=== PATIENT | male | born 1950 | race Caucasian/White ===

== ENCOUNTER 2020-01-27 15:59 | Inpatient (IN) | payer OTHER ==
--- NOTE | 2020-01-27 16:31 | PDOC ---
Rapid Medical Evaluation Chief Complaint: Blood Transfusion Time Seen by Provider: 01/27/20 16:26 Medical Evaluation: Allergies Allergy/AdvReac Type Severity Reaction Status Date / Time No Known Allergies Allergy Verified 01/27/20 16:26 Vital Signs Temp Pulse Resp BP Pulse Ox 98.5 F 99 H 18 149/83 96 01/27/20 16:26 01/27/20 16:26 01/27/20 16:26 01/27/20 16:26 01/27/20 16:26 01/27/20 16:31 I have performed a brief in-person evaluation of this patient. The patient presents with a chief complaint of: Sent in for low H/H from Dr Pedersen office. No sxs per pt. H/o HTN, HLD, BPH, asthma, CP, wheelchair bound Pertinent physical exam findings:stable, well clovis I have ordered the following:labs The patient will proceed to the ED for further evaluation. Discharge Disposition - Diagnosis Anemia Qualifiers: Anemia type: unspecified type Qualified Code(s): D64.9 - Anemia, unspecified - Referrals - Patient Instructions - Post Discharge Activity
[2020-01-27 16:34] VITALS: BMI 32.4
--- NOTE | 2020-01-27 17:17 | PDOC ---
History of Present Illness - General Chief Complaint: Blood Transfusion Stated Complaint: SENT BY PCP Time Seen by Provider: 01/27/20 16:26 Past History - Medical History Allergies/Adverse Reactions: Allergies Allergy/AdvReac Type Severity Reaction Status Date / Time No Known Allergies Allergy Verified 01/27/20 16:26 Home Medications: Ambulatory Orders Albuterol Sulfate Inhaler - [Ventolin HFA Inhaler -] 2 puff IH Q6H PRN 01/28/20 Aspirin [ASA -] 81 mg PO DAILY 01/28/20 Atorvastatin Ca [Lipitor] 40 mg PO HS 01/28/20 Diltiazem HCl [Diltiazem 24Hr ER (Xr)] 240 mg PO DAILY 01/28/20 Lisinopril 20 mg PO DAILY 01/28/20 Montelukast Na [Singulair -] 10 mg PO DAILY 01/28/20 Salmeterol/Fluticasone [Advair 100Mcg/50Mcg -] 1 inh PO BID 01/28/20 Ferrous Sulfate [Iron] 325 mg PO BID 30 Days #60 tablet 02/02/20 Mineral Oil/Pet Hy-Phl [Aquaphor -] 1 applic TP DAILY #1 jar 02/02/20 Polyethylene Glycol 3350 [Miralax 119 gm Btl -] 17 gm PO DAILY 30 Days #30 ceasar le 02/02/20 Silver Sulfadiazine 1% Top Cr [Silvadene -] 1 applic TP DAILY #1 jar 02/02/20 Omeprazole 20 mg PO DAILY #30 tablet. 02/03/20 - Psycho-Social/Smoking History Smoking History: Never smoked - Substance Abuse Hx (Audit-C & DAST Scrn) How often the patient has a drink containing alcohol: Never Score: In Men: 4 or > Positive; In Women: 3 or > Positive: 0 Screen Result (Pos requires Nsg. Audit-10AR): Negative In the last yr the pt used illegal drug/Rx for NonMed reason: No Score: Yes response is considered Positive: 0 Screen Result (Positive result requires Nsg. DAST-10): Negative *Physical Exam - Vital Signs Last Vital Signs Temp Pulse Resp BP Pulse Ox 98.5 F 99 H 18 149/83 96 01/27/20 16:26 01/27/20 16:26 01/27/20 16:26 01/27/20 16:26 01/27/20 16:26 ED Treatment Course - LABORATORY CBC & Chemistry Diagram: 02/02/20 07:00 02/02/20 07:00 Medical Decision Making - Medical Decision Making 01/27/20 17:19 HPI: 69yo M hx HTN, HLD, BPH with baxter catheter in place, asthma, and cerebral palsy (wheelchair bound) sent by PCP with aide for asymptomatic anemia (labs done 01/24/20, unknown numbers). Endorses chronic constipation and hard stool, daily miralax use, LBM 2 days ago. Constipation is being evaluated outpatient; no CLP ever due to pt refusal due to fear. Aide states pt intermittently sees external hemorrhoids and will have bright red blood when wipes, but denies bright red blood in/on stool or dark or tarry stool. Endorses stage 1 sacral ulcer to L buttocks that bleeds daily. Endorses tiny <1cm bright red blood clots in urine intermittently x years. Denies hx anemia, lightheadedness, syncope, CP, SOB, recent illness, abdominal pain, N/V, F/C. PCP - [facility] (not private pt, admits to hospitalist) ROS: Constitutional: Positive for anemia. Negative for chills, fever, fatigue, diaphoresis. HENT: Negative for sore throat, rhinorrhea, congestion. Eyes: Negative for visual disturbance. Respiratory: Negative for shortness of breath, cough, and wheezing. Cardiovascular: Negative for chest pain, palpitations, and leg swelling. Gastrointestinal: Positive for constipation, BRBPR, and hemorrhoids. Negative for abdominal pain, constipation, diarrhea, nausea, and vomiting. Genitourinary: Positive for hematuria. Negative for dysuria, flank pain. Musculoskeletal: Negative for myalgias, back pain, and neck pain. Skin: Positive for L sacral ulcer. Negative for rash. Neurological: Negative for light-headedness, dizziness, vertigo, syncope, weakness, numbness and headaches. Psychiatric/Behavioral: Negative for behavioral problems and confusion. PE: Gen: Alert, NAD, comfortable-appearing, in wheelchair HEENT: PERRL, EOMI, MMM, NCAT. + conjunctival pallor. Sclera are non-icteric. Oropharynx is clear. CV: Regular rate and rhythm. No murmurs, rubs, or gallops. PULM: No resp distress. CTAB, no wheezes, rales, or rhonchi. ABD: soft, NT/ND, reducible hiatal hernia, no rebound tenderness or guarding, no CVA tenderness. Urine in bag yellow without gross blood. RECTAL: exam performed. Light brown stool. No paul blood, fissures, skin flaps, or hemorrhoids seen. No masses or hemorrhoids felt. No pain with digital insertion. Guiac test positive. + stage 1 L sacral ulcer. BACK: No TTP of c/t/l-spine. No step-offs or deformities. MSK: No bony deformities. 2+ pulses in all extremities. NEURO: AAOx3. PERRL. No gross CN deficits. Strength and sensation grossly intact throughout. EXTREMITIES: No cyanosis. No clubbing. No edema. PSYCH: Normal mood and thought pattern. SKIN: Warm and dry. Normal capillary refill. No rashes. No jaundice. MDM: 69yo M hx HTN, HLD, BPH with baxter catheter in place, asthma, and cerebral palsy (wheelchair bound) sent by PCP with aide for asymptomatic anemia (labs done 01/24/20, unknown numbers), with possible hemorrhoids, hematuria, and bleeding sacral ulcer. Hemodynamically stable, afebrile, neurologically intact. Ddx: hemorrhoids, GI bleed, bleeding ulcer, malignancy, UTI, kidney stone, infection, metabolic derangement, anemia -EKG -CXR -CBC,CMP,Cardiac profile,anemia labs,UA/UC -CTAP -FOBT + -IVF -Dispo: pending workup and reassessment EKG reviewed: normal sinus rhythm, 86bpm, normal axis, normal intervals, no Te/o acute ischemia CTAP reviewed: no acute emergent pathology; see read for other findings CXR reviewed: No acute pathology -Hb 6.6 -UA positive for UTI -Transfuse 2U pRBCs -Ceftriaxone 1g -Admit for anemia possibly 2/2 sacral ulcer vs GIB, and UTI Discharge - Discharge Information Problems reviewed: Yes Clinical Impression/Diagnosis: UTI (urinary tract infection) Anemia Qualifiers: Anemia type: unspecified type Qualified Code(s): D64.9 - Anemia, unspecified Condition: Stable - Admission Yes - Follow up/Referral - Patient Discharge Instructions - Post Discharge Activity
[2020-01-27 19:04] LABS: BASO % 2.6 % (0-2.0); HEMATOCRIT 22.5 % (35.4-49); LYMPH % 18.2 % (8-40); MCHC 29.2 g/dl (32.0-35.9); MEAN CELL VOLUME 59.1 fl (80-96); MONO % 7.8 % (3.8-10.2); NEUT % 70.4 % (42.8-82.8); PLATELET COUNT 525 K/MM3 (134-434); RBC 3.81 M/mm3 (4.00-5.60); RDW 18.3 % (11.9-15.9); RETICULOCYTES 2.26 % (0.5-1.5); WHITE BLOOD COUNT 10.8 K/mm3 (4.0-10.0)
[2020-01-27 19:09] LABS: ALBUMIN 3.3 g/dl (3.4-5.0); BILIRUBIN,TOTAL 0.4 mg/dL (0.2-1); BLOOD UREA NITROGEN 10.2 mg/dL (7-18); CALCIUM 8.7 mg/dL (8.5-10.1); MCH 17.2 pg (25.7-33.7); TOT PROT 6.6 g/dl (6.4-8.2)
[2020-01-27 19:11] LABS: HEMOGLOBIN 6.6 GM/dL (11.7-16.9)
[2020-01-27 19:13] LABS: INR 1.12 (0.83-1.09); PROTHROMBIN TIME (PATIENT) 13.2 SEC (9.7-13.0)
[2020-01-27 19:15] LABS: ACTIVATED PTT 29.3 SECONDS (25.2-36.5)
[2020-01-27 19:55] LABS: ANISOCYTOSIS 2+; PLATELET ESTIMATE INCREASED
[2020-01-27 20:25] LABS: EPI CELLS 7 /uL (0-25.1); HYALINE CASTS 22 /uL (0-3.1); URINE APPEARANCE CLOUDY; URINE BACTERIA 6919 /uL (0-1359); URINE BILIRUBIN NEGATIVE (NEGATIVE); URINE COLOR YELLOW; URINE GLUCOSE (UA) NEGATIVE (NEGATIVE); URINE KETONE NEGATIVE (NEGATIVE); URINE LEUK ESTERASE 3+ (NEGATIVE); URINE NITRITE POSITIVE (NEGATIVE); URINE PROTEIN 2+ (NEGATIVE); URINE RBC 292 /uL (0-23.9); URINE UROBILINOGEN 0.2 mg/dL (0.2-1.0); URINE WBC 647 /uL (0-25.8)
[2020-01-27] MEDS ORDERED: CEFTRIAXONE 1 GM in DEXTROSE 5%-WATER - 100 ML IVPB ONE (21:29)
--- NOTE | 2020-01-27 21:53 | PDOC ---
Documentation entered by Conner Suh SCRIBE, acting as scribe for Tanja Gimenez MD. Tanja Gimenez MD: This documentation has been prepared by the Angeli tapia Xhesika, SCRIBE, under my direction and personally reviewed by me in its entirety. I confirm that the documentation accurately reflects all work, treatment, procedures, and medical decision making performed by me. Attending Attestation - Resident Resident Name: Marlyn Chau - HPI HPI: 01/27/20 17:24 The patient is a 69y/o M with a PMH of HTN, HLD, BPH with baxter catheter in place, asthma, and cerebral palsy (wheelchair bound) who presents to the ED sent by PCP (Dr. Pedersen) with aide for asymptomatic anemia. Patient had outpatient labs done, had low hemoglobin and might need a blood transfusion. Pt reports chronic constipation and hemorrhoids, uses miralax. Pt reports his LBM was 2 days ago. Allergies: NKDA PCP: Dr. Pedersen, Adriana - Physicial Exam PE: 01/27/20 21:45 Agree with resident exam. Patient is alert and oriented and in no acute distress. Lungs are clear. Heart regular rate and rhythm. Abdomen is soft, non tender, non distended without guarding or rebound. Skin is pale. - Medical Decision Making 01/27/20 21:51 Pt presents to the ED after sent in from PCP's office for symptomatic anemia of uncertain cause. Will transfuse and admit to medicine for continued management. Discharge - Discharge Information Problems reviewed: Yes Clinical Impression/Diagnosis: UTI (urinary tract infection) Anemia Qualifiers: Anemia type: unspecified type Qualified Code(s): D64.9 - Anemia, unspecified Condition: Stable - Follow up/Referral - Patient Discharge Instructions - Post Discharge Activity
--- NOTE | 2020-01-27 22:04 | PN ---
Teaching Attending Note Name of Resident: Patsy Staley ATTENDING PHYSICIAN STATEMENT I saw and evaluated the patient. I reviewed the resident's note and discussed the case with the resident. I agree with the resident's findings and plan as documented. SUBJECTIVE: Patient is a 69 year old man with a PMH of HTN, HLD, BPH (baxter catheter in place), Asthma and Cerebral palsy (wheelchair bound) sent by PCP with aide for severe anemia (labs done 01/24/20). Patient has chronic constipation and hard stool - takes Miralax daily and had a bowel movement 2 days ago. Has not had colonoscopy. Aide reports that patient intermittently sees external hemorrhoids and will have bright red blood when he wipes. Has stage 1 sacral ulcer to left buttock that bleeds daily. Has had bright red blood clots in urine intermittently for years. Denies history of anemia or family history of blood/clotting disorder. Patient denies chest pain, shortness of breath, abdominal pain, headache, palpitations, dizziness, fever, chills, nausea, vomiting, diarrhea, dysuria, frequency, urgency or melena. Denies alcohol, tobacco or illicit drug use. No sick contacts or recent travels. Family history is unremarkable. OBJECTIVE: Alert Vital Signs Period Temp Pulse Resp BP Sys/Encinas Pulse Ox Last 24 Hr 97.2 F-98.5 F 80-99 18-18 115-149/55-83 94-96 HEENT: No Jaundice, +Pallor; no eye redness or discharge, PERRLA, EOMI. Normocephalic, atraumatic. External ears are normal and hearing is grossly intact. No nasal discharge. Neck: Supple, nontender. No palpable adenopathy or thyromegaly. No JVD Chest: Good effort. Clear to auscultation and percussion. Heart: Regular. No S3, rub or murmur Abdomen: Not distended, soft, reducible umblical hernia; nontender and no HSM. No rebound or guarding. Normal bowel sounds. Ext: Peripheral pulses intact. No leg edema. Baxter in place. Skin: Warm and dry. No petechiae, rash or ecchymosis. Stage 2 buttock decubitus ulcer. Neuro: Alert. Oriented x3. CN 2-12 grossly intact. Sensation grossly intact in all four extremities and DTR are symmetric. Psych: Appropriate mood and affect. Good insight. Abnormal Lab Results 01/27/20 01/27/20 01/27/20 18:11 18:11 18:11 WBC 10.8 H RBC 3.81 L Hgb 6.6 L* Hct 22.5 L MCV 59.1 L MCH 17.2 L MCHC 29.2 L RDW 18.3 H Plt Count 525 H MPV 7.0 L Basophils % 2.6 H Retic Count 2.26 H PT with INR 13.20 H INR 1.12 H Iron Iron Saturation Unsaturated IBC Ferritin Alkaline Phosphatase 124 H Albumin 3.3 L Serum Folate Ur Specific [place] Urine Protein Urine Blood Urine Nitrite Ur Leukocyte Esterase Crossmatch 01/27/20 01/27/20 01/27/20 18:11 18:11 20:01 WBC RBC Hgb Hct MCV MCH MCHC RDW Plt Count MPV Basophils % Retic Count PT with INR INR Iron 10 L Iron Saturation 2 L Unsaturated IBC 392 H Ferritin 3.6 L Alkaline Phosphatase Albumin Serum Folate 28 H Ur Specific [place] 1.009 L Urine Protein 2+ H Urine Blood 3+ H Urine Nitrite Positive H Ur Leukocyte Esterase 3+ H Crossmatch See Detail Current Medications Generic Name Dose Route Start Last Admin Trade Name Freq PRN Reason Stop Dose Admin Ceftriaxone Sodium 1 gm/ 50 mls @ 100 mls/hr 01/28/20 10:00 Dextrose IVPB DAILY CASANDRA Pantoprazole Sodium 40 mg 01/28/20 10:00 Protonix Iv IVPUSH DAILY CASANDRA Polyethylene Glycol 17 gm 01/28/20 10:00 Miralax (For Daily Use) - PO DAILY CASANDRA ASSESSMENT AND PLAN: 1. Severe iron deficiency anemia/UTI - Anemia likely due to GI and blood loss. Stool guaiac is positive. Getting PRBC transfusion and will subsequently get IV iron. Will get CT abdomen/pelvis and consult GI for colonoscopy. Keep him NPO, treat with IV Ceftriaxone, IV Protonix, Miralax bid and provide daily care for buttock decubitus ulcer. Consult urology and change baxter. Viral testing for COVID-19 ordered and patient placed on airborne, droplet and contact isolation. EKG shows NSR at 90/minute and QTc [address]-T wave changes. Initial troponin is negative. Will continue comprehensive care for all of patients comorbid conditions including Duoneb PRN for asthma and frequent repositioning to prevent further decubitus ulcers. 2. Hypoalbuminemia - Possibly due to combined effects of proteinuria, malnutrition and inflammation associated with comorbid conditions. Will ensure adequate dietary protein intake and also consult high court justice. 3. Obesity Counseled on the risks associated with obesity. Will provide patient all the necessary assistance, counseling and positive reinforcement to facilitate weight loss. Consult high court justice. 4. Hypertension Will restart suitable outpatient antihypertensive drugs when clinically appropriate. Subsequently, will revise regimen to ensure [id number] excellent BP control. Patient counseled on the injurious effects of uncontrolled hypertension. Nonpharmacologic measures to control hypertension like weight loss, salt restriction and exercise stressed. Importance of adherence to treatment regimen and attainment of normotension emphasized. 5. DVT prophylaxis - SCD 6. Advance directives - Full code
[2020-01-27] MEDS ORDERED: CEFTRIAXONE 1 GM/50 ML BAG ONE (22:48)
--- NOTE | 2020-01-27 23:51 | HP ---
CHIEF COMPLAINT: anemia PCP: Dr. Pedersen HISTORY OF PRESENT ILLNESS: 69 yo male with PMHx of asthma, HTN, HLD, BPH (with baxter) and cerebral palsy (wheelchair bound) presented to the ED after his PCP told him his hemoglobin was low. He saw his PCP a few weeks ago and his Hbg was around 9. He went back to check his levels and he was told to come to the hospital because it was very low. Patient's aid endorses visible external hemorrhoid with visible bright red blood when cleaning the patient. He said the blood has been worse and more frequent over the last few weeks. The aid also says that the patient has blood clots in his baxter at times. Patient has never had colonoscopy. Patient denies fatigue, n/v/d, fever, chills, dysuria, or abdominal pain. ER course was notable for: (1) + UA, + FOBT (2) Ceftriaxone started (3) hb 6.6, 2 units pRBCs ordered Recent Travel: denies PAST MEDICAL HISTORY: BPH (baxter), HTN, HLD, chronic UTIs, chronic constipation PAST SURGICAL HISTORY: greenlight laser tx of prostate Family Hx: mother had heart disease Social History: Smoking: denies Alcohol: denies Drugs: denies Allergies No Known Allergies Allergy (Verified 01/27/20 16:26) HOME MEDICATIONS: REVIEW OF SYSTEMS CONSTITUTIONAL: Absent: fever, chills, diaphoresis, generalized weakness, malaise, loss of appetite, weight change HEENT: Absent: rhinorrhea, nasal congestion, throat pain, throat swelling, difficulty swallowing, mouth swelling, ear pain, eye pain, visual changes CARDIOVASCULAR: Absent: chest pain, syncope, palpitations, irregular heart rate, lightheadedness, peripheral edema RESPIRATORY: Absent: cough, shortness of breath, dyspnea with exertion, orthopnea, wheezing, stridor, hemoptysis GASTROINTESTINAL: Constipation, hematochezia Absent: abdominal pain, abdominal distension, nausea, vomiting, diarrhea, constipation, melena, hematochezia GENITOURINARY: Absent: dysuria, frequency, urgency, hesitancy, hematuria, flank pain, genital pain MUSCULOSKELETAL: Absent: myalgia, arthralgia, joint swelling, back pain, neck pain SKIN: Chronic left buttock ulcer Absent: rash, itching, pallor HEMATOLOGIC/IMMUNOLOGIC: Absent: easy bleeding, easy bruising, lymphadenopathy, frequent infections ENDOCRINE: Absent: unexplained weight gain, unexplained weight loss, heat intolerance, cold intolerance NEUROLOGIC: Absent: headache, focal weakness or paresthesias, dizziness, unsteady gait, seizure, mental status changes, bladder or bowel incontinence PSYCHIATRIC: Absent: anxiety, depression, suicidal or homicidal ideation, hallucinations. PHYSICAL EXAMINATION Vital Signs - 24 hr 01/27/20 01/27/20 01/27/20 16:26 20:15 21:15 Temperature 98.5 F 97.2 F L 98.1 F Pulse Rate 99 H Pulse Rate [ 80 80 Left Radial] Respiratory 18 18 19 Rate Blood Pressure 149/83 Blood Pressure 115/55 L 115/55 L [Right Arm] O2 Sat by Pulse 96 94 L 94 L Oximetry (%) 01/27/20 01/27/20 22:15 23:15 Temperature 98.1 F 98.1 F Pulse Rate Pulse Rate [ 74 89 Left Radial] Respiratory 19 18 Rate Blood Pressure Blood Pressure 122/64 116/56 L [Right Arm] O2 Sat by Pulse 95 95 Oximetry (%) GENERAL: Awake, alert, and fully oriented, in no acute distress. HEAD: Normal with no signs of trauma. EYES: Pupils equal, round and reactive to light, extraocular movements intact, conjunctiva pale ENT: Moist mucous membranes. NECK: Normal range of motion, supple LUNGS: Breath sounds equal, clear to auscultation bilaterally. HEART: Regular rate and rhythm, normal S1 and S2 ABDOMEN: Soft, nontender, not distended, normoactive bowel sounds, no guarding, no suprapubic tenderness. Partially reducible, non tender large umbilical hernia : Baxter in place, urine clear. Ulcer on left buttock stage 2 (chronic) UPPER EXTREMITIES: 2+ pulses, warm, well-perfused. No cyanosis. No clubbing. No peripheral edema. LOWER EXTREMITIES: 2+ pulses, warm, well-perfused. No calf tenderness. No peripheral edema. 1/5 muscle strength BL NEUROLOGICAL: Cranial nerves II-XII intact. Normal speech PSYCHIATRIC: Cooperative. Good eye contact. Appropriate mood and affect. SKIN: Warm, dry, normal turgor, no rashes or lesions noted, normal capillary refill. Laboratory Results - last 24 hr 01/27/20 01/27/20 01/27/20 18:11 18:11 18:11 WBC 10.8 H RBC 3.81 L Hgb 6.6 L* Hct 22.5 L MCV 59.1 L MCH 17.2 L MCHC 29.2 L RDW 18.3 H Plt Count 525 H MPV 7.0 L Absolute Neuts (auto) 7.6 Neutrophils % 70.4 Lymphocytes % 18.2 Monocytes % 7.8 Eosinophils % 1.0 Basophils % 2.6 H Nucleated RBC % 0 Hypochromia 2+ Platelet Estimate Increased Platelet Comment No clumping noted Polychromasia 1+ Anisocytosis 2+ Microcytosis 1+ Retic Count 2.26 H PT with INR 13.20 H INR 1.12 H PTT (Actin FS) 29.3 Sodium 136 Potassium 4.0 Chloride 102 Carbon Dioxide 23 Anion Gap 12 BUN 10.2 Creatinine 1.0 Est GFR (CKD-EPI)AfAm 89.86 Est GFR (CKD-EPI)NonAf 77.54 Random Glucose 101 Calcium 8.7 Iron TIBC Iron Saturation Unsaturated IBC Ferritin Total Bilirubin 0.4 AST 16 ALT 20 Alkaline Phosphatase 124 H Total Protein 6.6 Albumin 3.3 L Vitamin B12 Serum Folate TSH Urine Color Urine Appearance Urine pH Ur Specific [place] Urine Protein Urine Glucose (UA) Urine Ketones Urine Blood Urine Nitrite Urine Bilirubin Urine Urobilinogen Ur Leukocyte Esterase Urine WBC (Auto) Urine RBC (Auto) Urine Casts (Auto) U Epithel Cells (Auto) Urine Bacteria (Auto) Stool Occult Blood Blood Type Antibody Screen Crossmatch 01/27/20 01/27/20 01/27/20 18:11 18:11 19:52 WBC RBC Hgb Hct MCV MCH MCHC RDW Plt Count MPV Absolute Neuts (auto) Neutrophils % Lymphocytes % Monocytes % Eosinophils % Basophils % Nucleated RBC % Hypochromia Platelet Estimate Platelet Comment Polychromasia Anisocytosis Microcytosis Retic Count PT with INR INR PTT (Actin FS) Sodium Potassium Chloride Carbon Dioxide Anion Gap BUN Creatinine Est GFR (CKD-EPI)AfAm Est GFR (CKD-EPI)NonAf Random Glucose Calcium Iron 10 L TIBC 402 Iron Saturation 2 L Unsaturated IBC 392 H Ferritin 3.6 L Total Bilirubin AST ALT Alkaline Phosphatase Total Protein Albumin Vitamin B12 258 Serum Folate 28 H TSH 0.79 Urine Color Urine Appearance Urine pH Ur Specific [place] Urine Protein Urine Glucose (UA) Urine Ketones Urine Blood Urine Nitrite Urine Bilirubin Urine Urobilinogen Ur Leukocyte Esterase Urine WBC (Auto) Urine RBC (Auto) Urine Casts (Auto) U Epithel Cells (Auto) Urine Bacteria (Auto) Stool Occult Blood Positive Blood Type O POSITIVE Antibody Screen Negative Crossmatch See Detail 01/27/20 01/27/20 01/27/20 19:55 19:55 20:01 WBC RBC Hgb Hct MCV MCH MCHC RDW Plt Count MPV Absolute Neuts (auto) Neutrophils % Lymphocytes % Monocytes % Eosinophils % Basophils % Nucleated RBC % Hypochromia Platelet Estimate Platelet Comment Polychromasia Anisocytosis Microcytosis Retic Count PT with INR INR PTT (Actin FS) Sodium Potassium Chloride Carbon Dioxide Anion Gap BUN Creatinine Est GFR (CKD-EPI)AfAm Est GFR (CKD-EPI)NonAf Random Glucose Calcium Iron TIBC Iron Saturation Unsaturated IBC Ferritin Total Bilirubin AST ALT Alkaline Phosphatase Total Protein Albumin Vitamin B12 Serum Folate TSH Urine Color Yellow Urine Appearance Cloudy Urine pH 7.0 Ur Specific [place] 1.009 L Urine Protein 2+ H Urine Glucose (UA) Negative Urine Ketones Negative Urine Blood 3+ H Urine Nitrite Positive H Urine Bilirubin Negative Urine Urobilinogen 0.2 Ur Leukocyte Esterase 3+ H Urine WBC (Auto) 647 Urine RBC (Auto) 292 Urine Casts (Auto) 22 U Epithel Cells (Auto) 7 Urine Bacteria (Auto) 6919 Stool Occult Blood Blood Type Cancelled O POSITIVE Antibody Screen Cancelled Crossmatch ASSESSMENT/PLAN: 69 yo Male with PMHx of HTN, HLD, BPH (with baxter), asthma, chronic left buttock ulcer stage 2 (txs with silvadene) & cerebral palsy (wheelchair bound), told to come to ED by PCP for low hbg/hct. Hbg 6.6 in ED, FOBT +, and UA + for bacterial infection. Patient admitted for anemia requiring blood transfusion and workup for source of bleeding, and for treatment of UTI. Microcytic Iron Def Anemia: possibly acute bleeding on chronic anemia - Low iron, low ferritin, low MCV, hypochromic - FOBT +, continue FOBT series daily - GI consulted - CT Abdomen/pelvis - 2 units pRBCS - repeat CBC in AM - protonix daily until UGIB r/o - consider Venofer treatment after transfusion UTI - ceftriaxone started in ED, continue - cultures pending - patient reports using cipro in past, will f/u with cultures - chronic hematuria, consider outpatient f/u with urology - baxter in place, changed every 6 weeks - last UTI over 6 months ago Constipation - Miralax daily Chronic wound - continue silvadene tx and padding on wound - consult wound care DVT Prophylaxis - SCDs - avoiding AC due to bleeding Visit type - Medication Review Med list reviewed for High Risk Meds patients 65 and older: Yes - Emergency Visit Emergency Visit: Yes ED Registration Date: 01/27/20 Care time: The patient presented to the Emergency Department on the above date and was hospitalized for further evaluation of their emergent condition. - New Patient This patient is new to me today: Yes Date on this admission: 02/27/20 - Critical Care Critical Care patient: No ATTENDING PHYSICIAN STATEMENT I saw and evaluated the patient. I reviewed the resident's note and discussed the case with the resident. I agree with the resident's findings and plan as documented. SUBJECTIVE: OBJECTIVE: ASSESSMENT AND PLAN:
[2020-01-28 08:30] LABS: EOS % 3.6 % (0-4.5); HEMATOCRIT 23.6 % (35.4-49); HEMOGLOBIN 7.1 GM/dL (11.7-16.9); LYMPH % 20.5 % (8-40); MCHC 30.3 g/dl (32.0-35.9); MEAN CELL VOLUME 61.8 fl (80-96); MEAN PLT VOLUME 6.9 fl (7.5-11.1); MONO % 10.1 % (3.8-10.2); NEUT % 62.8 % (42.8-82.8); PLATELET COUNT 518 K/MM3 (134-434); RBC 3.81 M/mm3 (4.00-5.60); RDW 21.4 % (11.9-15.9); WHITE BLOOD COUNT 7.7 K/mm3 (4.0-10.0)
[2020-01-28 08:31] LABS: MCH 18.7 pg (25.7-33.7)
[2020-01-28] MEDS ORDERED: PT OWN MED DRAWER 7, Y5N ONE ×2 (09:24→16:28)
[2020-01-28] MEDS ORDERED: DEXTROSE 5%-WATER - 50 ML IVPB ONE (09:27)
[2020-01-28] MEDS ORDERED: cefTRIAXone SODIUM 1 GM VIAL ONE (09:27)
[2020-01-28 09:30] LABS: MAGNESIUM 2.4 mg/dL (1.8-2.4); PHOSPHOROUS 3.6 mg/dL (2.5-4.9)
--- NOTE | 2020-01-28 09:33 | CON.GI ---
Consult Consult Specialty:: GI Referred by:: Dr. Adriana Pedersen Reason for Consultation:: Anemia - History of Present Illness Chief Complaint: Anemia History of Present Illness: 69M admitted for evaluation of anemia. intermittent blood in baxter catheter and blood tinge in diaper and on towel described when he is cleaned. No overt rectal bleeding. No passage of clots. Patient's home health aid present with him. Home health aid describes bleeding as blood tinge on towel occasioanally. He does explain that his right buttock decubitus bleeds frequently and can drip blood. Denies abdominal pain. no family history of colon cancer. No dysphagia, odynophagia. Patient's home health aid describes Mr. Ahmadi as having large well formed bowel movements daily and that he uses MiraLAX 17g daily. Mr. ahmadi was admitted to [facility] 2 weeks ago for acute asthma exacerbation. He also explains that his "heart enzymes" were elevated and is seeing a key filer as an outpatient. He describes his current respiratory status as "so-so". 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: Other (Cerebral palsy) Cardio/Vascular: Yes: Hyperlipdemia Pulmonary: Yes: Asthma Gastrointestinal: Yes: Constipation Renal/: Yes: BPH - Past Surgical History Additional Surgical History: Greenlight laser therapy, right knee surgery - Alcohol/Substance Use Hx Alcohol Use: No History of Substance Use: reports: None - Smoking History Smoking history: Never smoked Have you smoked in the past 12 months: No - Social History Usual Living Arrangement: Alone ADL: Support Services Place of : [facility] History of Recent Travel: No Home Medications - Allergies Allergies/Adverse Reactions: Allergies Allergy/AdvReac Type Severity Reaction Status Date / Time No Known Allergies Allergy Verified 01/27/20 16:26 Family Medical History Other Family History: Mother: : 60's: unclear cause. Father: : 68: Carotid artery stenosis (? cva). 1 brother, 1 sister: healthy. No family history of colorectal cancer or other GI malignancy Review of Systems - Review of Systems Constitutional: denies: Chills, Fever Cardiovascular: denies: Chest Pain Respiratory: reports: Cough (chronic), Wheezing Gastrointestinal: reports: Constipation. denies: Abdominal Pain, Melena, Rectal Bleeding, Vomiting Physical Exam-GI Vital Signs: Vital Signs Temperature 98.1 F 01/28/20 05:15 Pulse Rate 72 01/28/20 05:15 Respiratory Rate 20 01/28/20 05:15 Blood Pressure 112/54 L 01/28/20 05:15 O2 Sat by Pulse Oximetry (%) 96 01/28/20 05:15 Constitutional: Yes: Calm Eyes: No: Sclera Icterus Cardiovascular: Yes: Regular Rate and Rhythm, Murmur (2/6 Systolic murmur at the left and right sternal border) Respiratory: Yes: Wheezes (bilateral expiratory wheezing and cough) Gastrointestinal Inspection: Yes: Hernia (partially reducible umbilical hernia. Tender upon attempt at reduction) ...Auscultate: Yes: Normoactive Bowel Sounds ...Palpate: Yes: Soft. No: Hepatomegaly ...Percussion: No: Tympanitic ...Rectal Exam: Yes: Other (No external lesions, no masses palpated, however rectal exam limited by body habitus. Light brown stool noted.) Extremities: Yes: Other (+ contractures) Edema: No (No LE edema,) Neurological: Yes: Alert, Oriented Labs: CBC, BMP 01/28/20 07:44 01/27/20 18:11 INR, PTT INR 1.12 (0.83-1.09) H 01/27/20 18:11 Hepatic Panel Total Bilirubin 0.4 mg/dL (0.2-1) 01/27/20 18:11 AST 16 U/L (15-37) 01/27/20 18:11 ALT 20 U/L (13-61) 01/27/20 18:11 Alkaline Phosphatase 124 U/L (45-117) H 01/27/20 18:11 Albumin 3.3 g/dl (3.4-5.0) L 01/27/20 18:11 Problem List - Problems (1) Iron deficiency anemia Assessment/Plan: The most frequent and significant bleeding described by his home health aid seems to be from the right buttock decubitus. He has not, however, had an EGD or colonoscopy. No overt bleeding / melena. Advise: Consider IV iron therapy given significant iron depletion reflected in labs as PO therapy will likely contribute to worsening constipation MiraLAX 17g daily Evaluation of right buttock decubitus as this is a source of chronic blood loss by description Did discuss EGD / Colonoscopy with Mr. Ahmadi and his home health aid, to exclude significant GI source of blood/iron loss. Discussed potential risks of the procedures like but not limited to bleeding, perforation requiring surgery to repair, infection, sedaion medication effects all of which could be potentially life threatening. Will need pulmonary and cardiac clearance prior to invasive testing given recent hospitalization for asthma exacerbation that also led to abnormal cardiac enzymes and cardiac evaluation. Will also need umbilical hernia imaged. If large bowel noted within the hernia, this could preclude safe passage of the clolonoscope and increase a risk for perforation. Awaiting CT scan of the A/P. Surgical evaluation of umbilical hernia and to see if the hernia can be reduced. Code(s): D50.9 - IRON DEFICIENCY ANEMIA, UNSPECIFIED
[2020-01-28] MEDS: PANTOPRAZOLE SODIUM 40 MG VIAL IVPUSH SCH (09:41)
[2020-01-28] MEDS: POLYETHYLENE GLYCOL 3350 119 GM BTL PO SCH (09:41)
[2020-01-28] MEDS: CEFTRIAXONE 1 GM in DEXTROSE 5%-WATER - 50 ML IVPB SCH (09:41)
[2020-01-28] MEDS: SILVER SULFADIAZINE 1% TOP CREAM 50 GM JAR TP SCH ×2 (09:41→09:43)
--- NOTE | 2020-01-28 10:21 | CON.CARD ---
Consult Consult Specialty:: cardio - History of Present Illness Chief Complaint: anemia History of Present Illness: 69 yo male here with bleeding, anemia has had bleeding from buttock decubitus. ? if rectal bleed as well. no prior GI scopes--currently being considered here. due to report of elevated cardiac enzymes at [facility] recently, in setting of asthma exacerbation, we were asked to evaluate his cardiac risk for procedures. says he was told at [facility] that the asthma "put a strain on my heart". never had cp then or presently. or at home--though is not ambulatory. no sob since back home no palp, syncope sees dr serrato for cardiology PMH: HTN HPL BPH, indwelling baxter UTIs - Past Medical History HOOKER UP: Yes: Other (Cerebral palsy) Cardio/Vascular: Yes: Hyperlipdemia Pulmonary: Yes: Asthma Gastrointestinal: Yes: Constipation Renal/: Yes: BPH - Past Surgical History Additional Surgical History: Greenlight laser therapy, right knee surgery - Alcohol/Substance Use Hx Alcohol Use: No History of Substance Use: reports: None - Smoking History Smoking history: Never smoked Have you smoked in the past 12 months: No - Social History Usual Living Arrangement: Alone ADL: Support Services History of Recent Travel: No Home Medications - Allergies Allergies/Adverse Reactions: Allergies Allergy/AdvReac Type Severity Reaction Status Date / Time No Known Allergies Allergy Verified 01/27/20 16:26 - Home Medications Home Medications: Ambulatory Orders Albuterol Sulfate Inhaler - [Ventolin HFA Inhaler -] 2 puff IH Q6H PRN 01/28/20 Aspirin [ASA -] 81 mg PO DAILY 01/28/20 Atorvastatin Ca [Lipitor] 40 mg PO HS 01/28/20 Diltiazem HCl [Diltiazem 24Hr ER (Xr)] 240 mg PO DAILY 01/28/20 Lisinopril 20 mg PO DAILY 01/28/20 Montelukast Na [Singulair -] 10 mg PO DAILY 01/28/20 Salmeterol/Fluticasone [Advair 100Mcg/50Mcg -] 1 inh PO BID 01/28/20 Family Medical History Family History: Denies (no known cmp) Review of Systems - Review of Systems Constitutional: denies: Chills, Fever Eyes: denies: Eye Pain HENT: denies: Nasal Congestion Neck: denies: Stiffness Cardiovascular: denies: Palpitations Respiratory: denies: Orthopnea, PND Gastrointestinal: denies: Bloating, Diarrhea Genitourinary: reports: Hematuria. denies: Burning Musculoskeletal: denies: Muscle Pain Integumentary: denies: Rash Neurological: denies: Numbness, Seizure, Syncope Endocrine: denies: Excessive Sweating Hematology/Lymphatic: denies: Excessive Bleeding Vital Signs: Vital Signs Temperature 98.1 F 01/28/20 05:15 Pulse Rate 72 01/28/20 05:15 Respiratory Rate 20 01/28/20 05:15 Blood Pressure 112/54 L 01/28/20 05:15 O2 Sat by Pulse Oximetry (%) 96 01/28/20 05:15 Constitutional: Yes: Well Nourished, No Distress Eyes: No: Sclera Icterus HENT: No: Nasal Congestion Neck: No: Decreased ROM Respiratory: Yes: CTA Bilaterally. No: Accessory Muscle Use Gastrointestinal: Yes: Normal Bowel Sounds. No: Distention, Hepatomegaly, Palpable Mass, Tenderness Cardiovascular: Yes: Regular Rate and Rhythm JVD: No Carotid Bruit: No PMI: Non-Displaced Heart Sounds: Yes: S1, S2. No: Gallop Murmur: No: Systolic Murmur, Diastolic Murmur Musculoskeletal: Yes: Other (No kyphosis) Extremities: No: Cool, Cyanosis Edema: No Peripheral Pulses: 2+ Left Carotid, 2+ Right Carotid, 2+ Left Doralis Pedis, 2+ Right Dorsalis Pedis Integumentary: No: Jaundice Neurological: Yes: Alert, Oriented (x3) Psychiatric: No: Agitated - Other Data Labs, Other Data: CBC, BMP 01/28/20 07:44 01/27/20 18:11 INR, PTT INR 1.12 (0.83-1.09) H 01/27/20 18:11 Assessment/Plan ECG: NSR, unremarkable severe iron deficiency anemia, preop CV eval: -management per primary team -Revised CV Risk Index = -recent report of "elevated heart enzymes" at [facility], with cardio followup at that time. please obtain records of troponins and any echo or stress test which was performed -i will attempt to contact dr serrato as well -further rec.s to follow HTN -reported history. not on meds here, bp normal -observe HPL -outpt f/u asthma: -per primary team
--- NOTE | 2020-01-28 11:44 | CON.PULM ---
Consult Consult Specialty:: PULMONARY Referred by:: Dr Rodriguez Reason for Consultation:: asthma - History of Present Illness Chief Complaint: anemia History of Present Illness: 69yo male with h/o HTN, hyperlipidemia, BPH, cerebral palsy, asthma who was admitted after outpt bloodwork found him to be anemic. Evaluated by GI, planned for endoscopy, pulmonary consulted for pre-procedural evaluation. He states his asthma is well controlled although he did have an exacerbation in November. He has been hospitalized for asthma before but never intubated. Maintained on Advair 250/50 BID and ventolin as needed. He uses ventolin in the morning prophylactically. Per his aide, he has had 2 exacerbations in the past 4 years. Currently denies shortness of breath, cough or wheezing. He is a nonsmoker. 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: Other (Cerebral palsy) Cardio/Vascular: Yes: Hyperlipdemia Pulmonary: Yes: Asthma Gastrointestinal: Yes: Constipation Renal/: Yes: BPH - Past Surgical History Additional Surgical History: Greenlight laser therapy, right knee surgery - Alcohol/Substance Use Hx Alcohol Use: No History of Substance Use: reports: None - Smoking History Smoking history: Never smoked Have you smoked in the past 12 months: No - Social History Usual Living Arrangement: Alone ADL: Support Services History of Recent Travel: No Home Medications - Allergies Allergies/Adverse Reactions: Allergies Allergy/AdvReac Type Severity Reaction Status Date / Time No Known Allergies Allergy Verified 01/27/20 16:26 Review of Systems - Review of Systems Constitutional: denies: Chills, Fever Eyes: denies: Recent Change in Vision HENT: denies: Nasal Congestion, Throat Pain Neck: denies: Stiffness, Tenderness Cardiovascular: denies: Shortness of Breath Respiratory: denies: Cough, SOB, Wheezing Gastrointestinal: denies: Abdominal Pain, Nausea, Vomiting Genitourinary: denies: Dysuria, Hematuria Neurological: denies: Dizziness, Headache Endocrine: denies: Unexplained Weight Loss Physical Exam Vital Sings: Vital Signs Temperature 98.1 F 01/28/20 05:15 Pulse Rate 72 01/28/20 05:15 Respiratory Rate 20 01/28/20 05:15 Blood Pressure 112/54 L 01/28/20 05:15 O2 Sat by Pulse Oximetry (%) 96 01/28/20 05:15 Constitutional: Yes: No Distress, Calm Eyes: Yes: Conjunctiva Clear, EOM Intact HENT: Yes: Atraumatic, Normocephalic Neck: Yes: Supple, Trachea Midline Cardiovascular: Yes: Regular Rate and Rhythm Respiratory: Yes: Regular, Diminished ...Clubbing: No Gastrointestinal: Yes: Normal Bowel Sounds, Soft. No: Tenderness Edema: No Neurological: Yes: Alert, Oriented Labs: CBC, BMP 01/28/20 07:44 01/27/20 18:11 Assessment/Plan Anemia r/o GI Bleed UTI Asthma HTN Hyperlipidemia BPH Cerebral Palsy - asthma appears to be mild, intermittent - symbicort while inpatient (formulary) and resume advair as outpt - albuterol as needed - DVT prophylaxis - no pulmonary contraindications for planned endoscopy Thank you for this consult Roldan Granados MD
[2020-01-28] MEDS ORDERED: ALBUTEROL SO4 HFA INHALER IH PRN (11:47)
[2020-01-28] MEDS: BUDESONIDE/FORMETEROL FUMARATE 80/4.5 mcg INHALER IH SCH ×2 (12:37→21:36)
--- NOTE | 2020-01-28 14:43 | PN ---
Teaching Attending Note Name of Resident: Jadon De Jesus ATTENDING PHYSICIAN STATEMENT I saw and evaluated the patient. I reviewed the resident's note and discussed the case with the resident. I agree with the resident's findings and plan as documented. SUBJECTIVE: Feels okay - denies CP/palpitations/lightheadedness/SOB. No abdominal pain/nausea/vomiting. Reports some blood in stool. OBJECTIVE: Afebrile, Hemodynamically Stable. Last Vital Signs Temp Pulse Resp BP Pulse Ox 98.2 F 72 20 111/88 94 L 01/28/20 09:30 01/28/20 09:30 01/28/20 09:30 01/28/20 09:30 01/28/20 09:30 HEENT - Atraumatic. Heart - S1, S2, RRR Lungs - clear to auscultation Abdomen - Umbilical Hernia, reducible. Soft, bowel sounds normal. Extremities - no edema , no calf tenderness. MS - Contractures LEs. L Buttock decubitus ulcer Stage 2/3 Laboratory Results - last 24 hr 01/27/20 01/27/20 01/27/20 18:11 18:11 18:11 WBC 10.8 H RBC 3.81 L Hgb 6.6 L* Hct 22.5 L MCV 59.1 L MCH 17.2 L MCHC 29.2 L RDW 18.3 H Plt Count 525 H MPV 7.0 L Absolute Neuts (auto) 7.6 Neutrophils % 70.4 Lymphocytes % 18.2 Monocytes % 7.8 Eosinophils % 1.0 Basophils % 2.6 H Nucleated RBC % 0 Hypochromia 2+ Platelet Estimate Increased Platelet Comment No clumping noted Polychromasia 1+ Anisocytosis 2+ Microcytosis 1+ Retic Count 2.26 H PT with INR 13.20 H INR 1.12 H PTT (Actin FS) 29.3 Sodium 136 Potassium 4.0 Chloride 102 Carbon Dioxide 23 Anion Gap 12 BUN 10.2 Creatinine 1.0 Est GFR (CKD-EPI)AfAm 89.86 Est GFR (CKD-EPI)NonAf 77.54 Random Glucose 101 Hemoglobin A1c % Calcium 8.7 Phosphorus Magnesium Iron TIBC Iron Saturation Unsaturated IBC Ferritin Total Bilirubin 0.4 AST 16 ALT 20 Alkaline Phosphatase 124 H Total Protein 6.6 Albumin 3.3 L Vitamin B12 Serum Folate TSH Urine Color Urine Appearance Urine pH Ur Specific [place] Urine Protein Urine Glucose (UA) Urine Ketones Urine Blood Urine Nitrite Urine Bilirubin Urine Urobilinogen Ur Leukocyte Esterase Urine WBC (Auto) Urine RBC (Auto) Urine Casts (Auto) U Epithel Cells (Auto) Urine Bacteria (Auto) Stool Occult Blood Blood Type Antibody Screen Crossmatch 01/27/20 01/27/20 01/27/20 18:11 18:11 19:52 WBC RBC Hgb Hct MCV MCH MCHC RDW Plt Count MPV Absolute Neuts (auto) Neutrophils % Lymphocytes % Monocytes % Eosinophils % Basophils % Nucleated RBC % Hypochromia Platelet Estimate Platelet Comment Polychromasia Anisocytosis Microcytosis Retic Count PT with INR INR PTT (Actin FS) Sodium Potassium Chloride Carbon Dioxide Anion Gap BUN Creatinine Est GFR (CKD-EPI)AfAm Est GFR (CKD-EPI)NonAf Random Glucose Hemoglobin A1c % Calcium Phosphorus Magnesium Iron 10 L TIBC 402 Iron Saturation 2 L Unsaturated IBC 392 H Ferritin 3.6 L Total Bilirubin AST ALT Alkaline Phosphatase Total Protein Albumin Vitamin B12 258 Serum Folate 28 H TSH 0.79 Urine Color Urine Appearance Urine pH Ur Specific [place] Urine Protein Urine Glucose (UA) Urine Ketones Urine Blood Urine Nitrite Urine Bilirubin Urine Urobilinogen Ur Leukocyte Esterase Urine WBC (Auto) Urine RBC (Auto) Urine Casts (Auto) U Epithel Cells (Auto) Urine Bacteria (Auto) Stool Occult Blood Positive Blood Type O POSITIVE Antibody Screen Negative Crossmatch See Detail 01/27/20 01/27/20 01/27/20 19:55 19:55 20:01 WBC RBC Hgb Hct MCV MCH MCHC RDW Plt Count MPV Absolute Neuts (auto) Neutrophils % Lymphocytes % Monocytes % Eosinophils % Basophils % Nucleated RBC % Hypochromia Platelet Estimate Platelet Comment Polychromasia Anisocytosis Microcytosis Retic Count PT with INR INR PTT (Actin FS) Sodium Potassium Chloride Carbon Dioxide Anion Gap BUN Creatinine Est GFR (CKD-EPI)AfAm Est GFR (CKD-EPI)NonAf Random Glucose Hemoglobin A1c % Calcium Phosphorus Magnesium Iron TIBC Iron Saturation Unsaturated IBC Ferritin Total Bilirubin AST ALT Alkaline Phosphatase Total Protein Albumin Vitamin B12 Serum Folate TSH Urine Color Yellow Urine Appearance Cloudy Urine pH 7.0 Ur Specific [place] 1.009 L Urine Protein 2+ H Urine Glucose (UA) Negative Urine Ketones Negative Urine Blood 3+ H Urine Nitrite Positive H Urine Bilirubin Negative Urine Urobilinogen 0.2 Ur Leukocyte Esterase 3+ H Urine WBC (Auto) 647 Urine RBC (Auto) 292 Urine Casts (Auto) 22 U Epithel Cells (Auto) 7 Urine Bacteria (Auto) 6919 Stool Occult Blood Blood Type Cancelled O POSITIVE Antibody Screen Cancelled Crossmatch 01/28/20 01/28/20 01/28/20 07:44 07:44 07:44 WBC 7.7 RBC 3.81 L Hgb 7.1 L Hct 23.6 L MCV 61.8 L MCH 18.7 L MCHC 30.3 L RDW 21.4 H Plt Count 518 H MPV 6.9 L Absolute Neuts (auto) 4.9 Neutrophils % 62.8 Lymphocytes % 20.5 Monocytes % 10.1 Eosinophils % 3.6 D Basophils % 3.0 H Nucleated RBC % 0 Hypochromia Platelet Estimate Platelet Comment Polychromasia Anisocytosis Microcytosis Retic Count PT with INR INR PTT (Actin FS) Sodium Potassium Chloride Carbon Dioxide Anion Gap BUN Creatinine Est GFR (CKD-EPI)AfAm Est GFR (CKD-EPI)NonAf Random Glucose Hemoglobin A1c % < 3.5 L Calcium Phosphorus 3.6 Magnesium 2.4 Iron TIBC Iron Saturation Unsaturated IBC Ferritin Total Bilirubin AST ALT Alkaline Phosphatase Total Protein Albumin Vitamin B12 Serum Folate TSH Urine Color Urine Appearance Urine pH Ur Specific [place] Urine Protein Urine Glucose (UA) Urine Ketones Urine Blood Urine Nitrite Urine Bilirubin Urine Urobilinogen Ur Leukocyte Esterase Urine WBC (Auto) Urine RBC (Auto) Urine Casts (Auto) U Epithel Cells (Auto) Urine Bacteria (Auto) Stool Occult Blood Blood Type Antibody Screen Crossmatch Current Medications Generic Name Dose Route Start Last Admin Trade Name Freq PRN Reason Stop Dose Admin Albuterol Sulfate 2 puff 01/28/20 11:47 Ventolin Hfa Inhaler - IH Q4H PRN SHORT OF BREATH/WHEEZING Budesonide/Formoterol Fumarate 2 puff 01/28/20 12:00 01/28/20 12:37 Symbicort 80/4.5mcg - IH 2 puff BID CASANDRA Administration Ceftriaxone Sodium 1 gm/ 50 mls @ 100 mls/hr 01/28/20 10:00 01/28/20 09:41 Dextrose IVPB 100 mls/hr DAILY CASANDRA Administration Pantoprazole Sodium 40 mg 01/28/20 10:00 01/28/20 09:41 Protonix Iv IVPUSH 40 mg DAILY CASANDRA Administration Polyethylene Glycol 17 gm 01/28/20 10:00 01/28/20 09:41 Miralax (For Daily Use) - PO 17 grams DAILY CASANDRA Administration Silver Sulfadiazine 1 applic 01/28/20 08:00 01/28/20 09:43 Silvadene - TP Not Given DAILY CASANDRA ASSESSMENT AND PLAN: 69 year old male with history of Cerebral palsy (wheelchair bound), HTN, HLD, BPH (indwelling baxter catheter), Asthma, and sent in by PCP for severe anemia (labs done 01/24/20). He reports chronic constipation and bloody TP due to hemorrhoids. Also reports occasional hematuria for years. 1. Iron Deficiency Anemia - Severe Etiology unclear, likely GI source, FOBT positive Ferritin 3.6/Iron Sat 2%. H/H 6.6/22.5 on presentation, now 7.1/23.6 s/p 1 unit PRBC - to receive 2nd unit. Eventual IV Venofer/Iron supplementation. GI evaluated for possible EGD/[place] - GI requesting Cardiac, Pulm, and Surgery clearance prior to EGD/[place]. B12 level 258, borderline - will also supplement. GI Px - Protonix 2. UTI as suggested by UA (Catheter associated UTI). Hx BPH with indwelling baxter catheter. On empiric Ceftriaxone pending Urine Cx. Long Hx of intermittent hematuria - for Urology out-patient follow up. Change Baxter cath 3. Reported Cardiac History, with recount of elevated cardiac enzmes on recent admission to [facility] - GI requests Cardiology clearance prior to GI Ix. Medical records to be requested from [facility]. 4. Asthma, no evidence of acute exacerbation. GI requests Pulmonary clearance prior to GI Ix due to recent admission at [facility] for Asthma Exacerbation. Asthma is Mild/Intermittent as per Pulm. Continue Symbicort s in-patient and Ventolin PRN. 5. HTN/HLD - will need to confirm home meds. 6. Chronic L Decubitus ulcer, present on admission - Stage 2/3 - no evidence of associated infection. Silvadene dressings. 7. Umbilical Hernia, appears reducible. CT A/P pending. Surgery eval as requested by GI prior to GI procedures to ensure scope able to pass. DVT PX - SCDs. No Heparin/Lovenox due to GI blood loss/severe anemia.
[2020-01-28] MEDS: LISINOPRIL 20 MG TABLET (FP) PO SCH (16:32)
--- NOTE | 2020-01-28 16:58 | PN ---
Physical Exam: SUBJECTIVE: Patient seen and examined NAEON. Received blood x1unit Denies rectal pain. Manager Play at bedside thinks there was on wiping after BM. Pt endorses chronic constipation and straining. Denies chronic NSAID usage. OBJECTIVE: Vital Signs Period Temp Pulse Resp BP Sys/Encinas Pulse Ox Last 24 Hr 97.2 F-98.5 F 72-89 18-20 104-124/49-88 94-98 GENERAL: The patient is awake, alert, and fully oriented, in no acute distress. HEAD: Normal with no signs of trauma. EYES: sclera anicteric, conjunctiva w/ mild pallor. ENT: Ears normal, nares patent, oropharynx clear without exudates, moist mucous membranes. NECK: Trachea midline, full range of motion, supple. LUNGS: Breath sounds equal, clear to auscultation bilaterally, no wheezes, no crackles, no accessory muscle use. HEART: Regular rate and rhythm, S1, S2. Mild systolic murmur ABDOMEN: reducible umbilica hernia w/o overlying skin changes. Soft, nontender, nondistended, normoactive bowel sounds, no guarding, no rebound RECTAL: Right-sided stage 2 pressure ulcer, ~ 3-4cm w/o surrounding warmth/erythema. No visible external hemorrhoids, No palpable internal hemrrhoids. No gross blood on glove EXTREMITIES: BLE contractures and muscle wasting. NEUROLOGICAL: Normal speech. Minimal movement of BLE, sensation intact of BLE PSYCH: Normal mood, normal affect. SKIN: Warm, dry, normal turgor Laboratory Results - last 24 hr 01/27/20 01/27/20 01/27/20 18:11 18:11 18:11 WBC 10.8 H RBC 3.81 L Hgb 6.6 L* Hct 22.5 L MCV 59.1 L MCH 17.2 L MCHC 29.2 L RDW 18.3 H Plt Count 525 H MPV 7.0 L Absolute Neuts (auto) 7.6 Neutrophils % 70.4 Lymphocytes % 18.2 Monocytes % 7.8 Eosinophils % 1.0 Basophils % 2.6 H Nucleated RBC % 0 Hypochromia 2+ Platelet Estimate Increased Platelet Comment No clumping noted Polychromasia 1+ Anisocytosis 2+ Microcytosis 1+ Retic Count 2.26 H PT with INR 13.20 H INR 1.12 H PTT (Actin FS) 29.3 Sodium 136 Potassium 4.0 Chloride 102 Carbon Dioxide 23 Anion Gap 12 BUN 10.2 Creatinine 1.0 Est GFR (CKD-EPI)AfAm 89.86 Est GFR (CKD-EPI)NonAf 77.54 Random Glucose 101 Hemoglobin A1c % Calcium 8.7 Phosphorus Magnesium Iron TIBC Iron Saturation Unsaturated IBC Ferritin Total Bilirubin 0.4 AST 16 ALT 20 Alkaline Phosphatase 124 H Total Protein 6.6 Albumin 3.3 L Vitamin B12 Serum Folate TSH Urine Color Urine Appearance Urine pH Ur Specific [place] Urine Protein Urine Glucose (UA) Urine Ketones Urine Blood Urine Nitrite Urine Bilirubin Urine Urobilinogen Ur Leukocyte Esterase Urine WBC (Auto) Urine RBC (Auto) Urine Casts (Auto) U Epithel Cells (Auto) Urine Bacteria (Auto) Stool Occult Blood Blood Type Antibody Screen Crossmatch 01/27/20 01/27/20 01/27/20 18:11 18:11 19:52 WBC RBC Hgb Hct MCV MCH MCHC RDW Plt Count MPV Absolute Neuts (auto) Neutrophils % Lymphocytes % Monocytes % Eosinophils % Basophils % Nucleated RBC % Hypochromia Platelet Estimate Platelet Comment Polychromasia Anisocytosis Microcytosis Retic Count PT with INR INR PTT (Actin FS) Sodium Potassium Chloride Carbon Dioxide Anion Gap BUN Creatinine Est GFR (CKD-EPI)AfAm Est GFR (CKD-EPI)NonAf Random Glucose Hemoglobin A1c % Calcium Phosphorus Magnesium Iron 10 L TIBC 402 Iron Saturation 2 L Unsaturated IBC 392 H Ferritin 3.6 L Total Bilirubin AST ALT Alkaline Phosphatase Total Protein Albumin Vitamin B12 258 Serum Folate 28 H TSH 0.79 Urine Color Urine Appearance Urine pH Ur Specific [place] Urine Protein Urine Glucose (UA) Urine Ketones Urine Blood Urine Nitrite Urine Bilirubin Urine Urobilinogen Ur Leukocyte Esterase Urine WBC (Auto) Urine RBC (Auto) Urine Casts (Auto) U Epithel Cells (Auto) Urine Bacteria (Auto) Stool Occult Blood Positive Blood Type O POSITIVE Antibody Screen Negative Crossmatch See Detail 01/27/20 01/27/20 01/27/20 19:55 19:55 20:01 WBC RBC Hgb Hct MCV MCH MCHC RDW Plt Count MPV Absolute Neuts (auto) Neutrophils % Lymphocytes % Monocytes % Eosinophils % Basophils % Nucleated RBC % Hypochromia Platelet Estimate Platelet Comment Polychromasia Anisocytosis Microcytosis Retic Count PT with INR INR PTT (Actin FS) Sodium Potassium Chloride Carbon Dioxide Anion Gap BUN Creatinine Est GFR (CKD-EPI)AfAm Est GFR (CKD-EPI)NonAf Random Glucose Hemoglobin A1c % Calcium Phosphorus Magnesium Iron TIBC Iron Saturation Unsaturated IBC Ferritin Total Bilirubin AST ALT Alkaline Phosphatase Total Protein Albumin Vitamin B12 Serum Folate TSH Urine Color Yellow Urine Appearance Cloudy Urine pH 7.0 Ur Specific [place] 1.009 L Urine Protein 2+ H Urine Glucose (UA) Negative Urine Ketones Negative Urine Blood 3+ H Urine Nitrite Positive H Urine Bilirubin Negative Urine Urobilinogen 0.2 Ur Leukocyte Esterase 3+ H Urine WBC (Auto) 647 Urine RBC (Auto) 292 Urine Casts (Auto) 22 U Epithel Cells (Auto) 7 Urine Bacteria (Auto) 6919 Stool Occult Blood Blood Type Cancelled O POSITIVE Antibody Screen Cancelled Crossmatch 01/28/20 01/28/20 01/28/20 07:44 07:44 07:44 WBC 7.7 RBC 3.81 L Hgb 7.1 L Hct 23.6 L MCV 61.8 L MCH 18.7 L MCHC 30.3 L RDW 21.4 H Plt Count 518 H MPV 6.9 L Absolute Neuts (auto) 4.9 Neutrophils % 62.8 Lymphocytes % 20.5 Monocytes % 10.1 Eosinophils % 3.6 D Basophils % 3.0 H Nucleated RBC % 0 Hypochromia Platelet Estimate Platelet Comment Polychromasia Anisocytosis Microcytosis Retic Count PT with INR INR PTT (Actin FS) Sodium Potassium Chloride Carbon Dioxide Anion Gap BUN Creatinine Est GFR (CKD-EPI)AfAm Est GFR (CKD-EPI)NonAf Random Glucose Hemoglobin A1c % < 3.5 L Calcium Phosphorus 3.6 Magnesium 2.4 Iron TIBC Iron Saturation Unsaturated IBC Ferritin Total Bilirubin AST ALT Alkaline Phosphatase Total Protein Albumin Vitamin B12 Serum Folate TSH Urine Color Urine Appearance Urine pH Ur Specific [place] Urine Protein Urine Glucose (UA) Urine Ketones Urine Blood Urine Nitrite Urine Bilirubin Urine Urobilinogen Ur Leukocyte Esterase Urine WBC (Auto) Urine RBC (Auto) Urine Casts (Auto) U Epithel Cells (Auto) Urine Bacteria (Auto) Stool Occult Blood Blood Type Antibody Screen Crossmatch Active Medications Generic Name Dose Route Start Last Admin Trade Name Freq PRN Reason Stop Dose Admin Albuterol Sulfate 2 puff 01/28/20 11:47 Ventolin Hfa Inhaler - IH Q4H PRN SHORT OF BREATH/WHEEZING Atorvastatin Calcium 40 mg 01/28/20 22:00 Lipitor - PO HS CASANDRA Budesonide/Formoterol Fumarate 2 puff 01/28/20 12:00 01/28/20 12:37 Symbicort 80/4.5mcg - IH 2 puff BID CASANDRA Administration Diltiazem HCl 240 mg 01/28/20 15:00 Cardizem Cd - PO DAILY CASANDRA Ceftriaxone Sodium 1 gm/ 50 mls @ 100 mls/hr 01/28/20 10:00 01/28/20 09:41 Dextrose IVPB 100 mls/hr DAILY CASANDRA Administration Lisinopril 20 mg 01/28/20 15:00 01/28/20 16:32 Prinivil PO 20 mg DAILY CASANDRA Administration Pantoprazole Sodium 40 mg 01/28/20 10:00 01/28/20 09:41 Protonix Iv IVPUSH 40 mg DAILY CASANDRA Administration Polyethylene Glycol 17 gm 01/28/20 10:00 01/28/20 09:41 Miralax (For Daily Use) - PO 17 grams DAILY CASANDRA Administration Silver Sulfadiazine 1 applic 01/28/20 08:00 01/28/20 09:43 Silvadene - TP Not Given DAILY CASADNRA ASSESSMENT/PLAN: 69 yo Male with PMHx of HTN, HLD, asthma, BPH (with baxter, last exchanged 2wk prior), asthma, chronic left buttock ulcer stage 2 (txs with silvadene) & cerebral palsy (wheelchair bound x4ys), referred to [facility] by PCP for low hbg/hct. Labs notable for Hbg 6.6 in ED, FOBT +, and UA + for bacterial infection. Patient admitted for anemia requiring blood transfusion and workup fo r source of bleeding, and for treatment of UTI. #Microcytic Iron Def Anemia --possibly acute bleeding and/or chronic anemia - Low iron, low ferritin, low MCV, hypochromic - FOBT +, continue FOBT series daily - GI consulted(DiGiorno): --rec IV iron, miralax 17g --rec right buttock decubitus evaluation, possible source of chronic blood loss --rec pulm, cardio clearance --rec CT A/P and surgical eval of umbilical hernia - CT Abdomen/pelvis: IMG-ONCALL:: enlarged prostate w/ heterogeneous parenchymal attenuation at which neoplastic involvement cannot be excluded, colonic diverticula, diastasis of rectus abdominus w/ fat herniation, nonobstructing Left renal calculus, hypodense b/l renal lesions cw cysts, atherosclerotic calcifications, kyphoscoliosis of the thoracolumbar spine w/ degenerative changes - sp 2 units pRBCS - protonix daily until UGIB r/o - HOLDING venofer transfusion until blood completion --trying to avoid iron overload #UTI - ceftriaxone started in ED, continue - cultures pending - patient reports using cipro in past, will f/u with cultures - chronic hematuria, consider outpatient f/u with urology - baxter in place, changed every 6 weeks - last UTI over 6 months ago #fat-containing umbilical hernia from rectus diastasis - no bowel involvement #unknown cardiac issues - cardio consult(Git) --rec obtaining cardio records d/t reported "elevated heart enzymes" - pt reports w/u with Dr Pritesh Parker at [facility] - cardiac records requested from Dr Parker #chronic asthma - cw home meds - Pulm consult(Granados): --rec albuterol, symbicort #heterogenous prostate - fu final CT read - fu PSA #Constipation - Miralax daily #Chronic decubitus wounds - aquaphor and padding on wound - consult wound care DVT Prophylaxis - SCDs - avoiding AC due to bleeding Visit type - Emergency Visit Emergency Visit: No - New Patient This patient is new to me today: Yes Date on this admission: 01/29/20 - Critical Care Critical Care patient: No - Medication Review Med list reviewed for High Risk Meds patients 65 and older: Yes ATTENDING PHYSICIAN STATEMENT I saw and evaluated the patient. I reviewed the resident's note and discussed the case with the resident. I agree with the resident's findings and plan as documented. SUBJECTIVE: OBJECTIVE: ASSESSMENT AND PLAN:
[2020-01-28] MEDS: ATORVASTATIN CA 40 MG TABLET (FP) PO SCH (21:36)
[2020-01-28] MEDS ORDERED: ZINC OXIDE 20% TOPICAL OINTMENT 30 GM TUBE TP SCH (22:00)
[2020-01-29 08:34] LABS: HEMATOCRIT 26.9 % (35.4-49); HEMOGLOBIN 8.3 GM/dL (11.7-16.9); MCH 19.8 pg (25.7-33.7); MCHC 30.9 g/dl (32.0-35.9); MEAN CELL VOLUME 64.3 fl (80-96); MEAN PLT VOLUME 6.7 fl (7.5-11.1); PLATELET COUNT 503 K/MM3 (134-434); RBC 4.18 M/mm3 (4.00-5.60); WHITE BLOOD COUNT 8.8 K/mm3 (4.0-10.0)
[2020-01-29 08:40] LABS: BLOOD UREA NITROGEN 12.4 mg/dL (7-18); CALCIUM 8.4 mg/dL (8.5-10.1); CREATININE 0.9 mg/dL (0.55-1.3); MAGNESIUM 2.5 mg/dL (1.8-2.4); PHOSPHOROUS 3.8 mg/dL (2.5-4.9); POTASSIUM 3.9 mmol/L (3.5-5.1)
[2020-01-29] MEDS ORDERED: cefTRIAXone SODIUM 1 GM VIAL ONE (09:00)
[2020-01-29] MEDS ORDERED: DEXTROSE 5%-WATER - 50 ML IVPB ONE (09:00)
[2020-01-29] MEDS ORDERED: PT OWN MED DRAWER 7, Y5N ONE (09:00)
[2020-01-29] MEDS: CEFTRIAXONE 1 GM in DEXTROSE 5%-WATER - 50 ML IVPB SCH (09:09)
[2020-01-29] MEDS: LISINOPRIL 20 MG TABLET (FP) PO SCH (09:10)
[2020-01-29] MEDS: PANTOPRAZOLE SODIUM 40 MG VIAL IVPUSH SCH (09:11)
[2020-01-29] MEDS: MINERAL OIL/PET HY-PHL TOPICAL OINTMENT 454 GM JAR TP SCH (09:11)
[2020-01-29] MEDS: POLYETHYLENE GLYCOL 3350 119 GM BTL PO SCH (09:11)
[2020-01-29] MEDS: BUDESONIDE/FORMETEROL FUMARATE 80/4.5 mcg INHALER IH SCH ×2 (09:13→22:02)
--- NOTE | 2020-01-29 09:36 | PN ---
Progress Note, Physician Chief Complaint: no cp/sob/palps History of Present Illness: 69 yo male here with bleeding, anemia has had bleeding from buttock decubitus. ? if rectal bleed as well. no prior GI scopes--currently being considered here. due to report of elevated cardiac enzymes at [place] recently, in setting of asthma exacerbation, we were asked to evaluate his cardiac risk for procedures. says he was told at [facility] that the asthma "put a strain on my heart". never had cp then or presently. or at home--though is not ambulatory. no sob since back home no palp, syncope sees dr serrato for cardiology PMH: HTN HPL BPH, indwelling baxter UTIs - Current Medication List Current Medications: Active Medications Albuterol Sulfate (Ventolin Hfa Inhaler -) 2 puff IH Q4H PRN PRN Reason: SHORT OF BREATH/WHEEZING Atorvastatin Calcium (Lipitor -) 40 mg PO HS [facility] Last Admin: 01/28/20 21:36 Dose: 40 mg Documented by: Budesonide/Formoterol Fumarate (Symbicort 80/4.5mcg -) 2 puff IH BID [facility] Last Admin: 01/29/20 09:13 Dose: 2 puff Documented by: Diltiazem HCl (Cardizem Cd -) 240 mg PO DAILY [facility] Last Admin: 01/29/20 09:11 Dose: 240 mg Documented by: Emollient Ointment (Aquaphor -) 1 applic TP DAILY [facility] Last Admin: 01/29/20 09:11 Dose: 1 applic Documented by: Ceftriaxone Sodium 1 gm/ (Dextrose) 50 mls @ 100 mls/hr IVPB DAILY [facility] Last Admin: 01/29/20 09:09 Dose: 100 mls/hr Documented by: Lisinopril (Prinivil) 20 mg PO DAILY [facility] Last Admin: 01/29/20 09:10 Dose: 20 mg Documented by: Pantoprazole Sodium (Protonix Iv) 40 mg IVPUSH DAILY [facility] Last Admin: 01/29/20 09:11 Dose: 40 mg Documented by: Polyethylene Glycol (Miralax (For Daily Use) -) 17 gm PO DAILY [facility] Last Admin: 01/29/20 09:11 Dose: 17 grams Documented by: - Objective Vital Signs: Vital Signs Temperature 97.6 F 01/29/20 06:00 Pulse Rate 76 01/29/20 06:00 Respiratory Rate 18 01/29/20 06:00 Blood Pressure 121/64 01/29/20 06:00 O2 Sat by Pulse Oximetry (%) 93 L 01/29/20 06:00 Constitutional: Yes: No Distress, Calm Eyes: Yes: Conjunctiva Clear Neck: Yes: Supple, Trachea Midline Cardiovascular: Yes: Regular Rate and Rhythm Respiratory: Yes: CTA Bilaterally (no rales or wheezing) Gastrointestinal: Yes: Soft (nt) Edema: No Neurological: Yes: Alert, Oriented ...Motor Strength: WNL Labs: CBC, BMP 01/29/20 07:20 01/29/20 07:20 INR, PTT INR 1.12 (0.83-1.09) H 01/27/20 18:11 Laboratory Tests 01/27/20 01/27/20 01/29/20 19:52 22:58 07:20 WBC 8.8 Hgb 8.3 L Plt Count 503 H Sodium Potassium Creatinine Magnesium Stool Occult Blood Positive COVID-19 (TOY) Pending 01/29/20 07:20 WBC Hgb Plt Count Sodium 138 Potassium 3.9 Creatinine 0.9 Magnesium 2.5 H Stool Occult Blood COVID-19 (TOY) Assessment/Plan Assessment/Plan ECG: NSR, unremarkable severe iron deficiency anemia, preop CV eval: -management per primary team -recent report of "elevated heart enzymes" at [facility], with cardio followup at that time. please obtain records of troponins and any echo or stress test which was performed -Dr Lobato will attempt to contact dr serrato as well (see note 8/1) -further rec.s to follow HTN: -Stable an controlled on Diltiazem HPL: -outpt f/u asthma: -per primary team
--- NOTE | 2020-01-29 09:43 | PN ---
Progress Note (short form) - Note Progress Note: Pulm eval noted Awaiting official read oc CT scan: looks like fat in hernia with some involvement of colon Await cardiology eval Problem List - Problems (1) Iron deficiency anemia Code(s): D50.9 - IRON DEFICIENCY ANEMIA, UNSPECIFIED
--- NOTE | 2020-01-29 10:25 | PN ---
Progress Note (short form) - Note Progress Note: surgery hernia with fat and some tenting on either small bowel or redundant cecal bascule. sigmoid and transverse colon not involved. can be seen as output for hernia repair. hernia should not affect plans for thursday colonoscopy pending official ct read.
--- NOTE | 2020-01-29 11:37 | PN ---
Progress Note (short form) - Note Progress Note: PULMONARY Denies shortness of breath, cough or wheezing. Vital Signs Period Temp Pulse Resp BP Sys/Encinas Pulse Ox Last 24 Hr 97.6 F-98.5 F 75-77 18-20 112-124/55-83 93-97 Gen: NAD at rest Heart: RRR Lung: decreased breath sounds at the bases Abd: soft, nontender Ext: no edema CBC, BMP 01/29/20 07:20 01/29/20 07:20 Active Medications Albuterol Sulfate (Ventolin Hfa Inhaler -) 2 puff IH Q4H PRN PRN Reason: SHORT OF BREATH/WHEEZING Atorvastatin Calcium (Lipitor -) 40 mg PO HS [facility] Last Admin: 01/28/20 21:36 Dose: 40 mg Documented by: Budesonide/Formoterol Fumarate (Symbicort 80/4.5mcg -) 2 puff IH BID [facility] Last Admin: 01/29/20 09:13 Dose: 2 puff Documented by: Diltiazem HCl (Cardizem Cd -) 240 mg PO DAILY [facility] Last Admin: 01/29/20 09:11 Dose: 240 mg Documented by: Emollient Ointment (Aquaphor -) 1 applic TP DAILY [facility] Last Admin: 01/29/20 09:11 Dose: 1 applic Documented by: Ceftriaxone Sodium 1 gm/ (Dextrose) 50 mls @ 100 mls/hr IVPB DAILY [facility] Last Admin: 01/29/20 09:09 Dose: 100 mls/hr Documented by: Lisinopril (Prinivil) 20 mg PO DAILY [facility] Last Admin: 01/29/20 09:10 Dose: 20 mg Documented by: Pantoprazole Sodium (Protonix Iv) 40 mg IVPUSH DAILY [facility] Last Admin: 01/29/20 09:11 Dose: 40 mg Documented by: Polyethylene Glycol (Miralax (For Daily Use) -) 17 gm PO DAILY [facility] Last Admin: 01/29/20 09:11 Dose: 17 grams Documented by: A/P Anemia r/o GI Bleed UTI Asthma HTN Hyperlipidemia BPH Cerebral Palsy - asthma appears to be mild, intermittent - symbicort while inpatient (formulary) and resume advair as outpt - albuterol as needed - DVT prophylaxis - no pulmonary contraindications for planned endoscopy
--- NOTE | 2020-01-29 12:13 | PN ---
Progress Note (short form) - Note Progress Note: reviewed Dr. Butler's note Awaiting cardiology evaluation Plan for EGD/Colon likely Tu or Thu once cleared Problem List - Problems (1) Iron deficiency anemia Code(s): D50.9 - IRON DEFICIENCY ANEMIA, UNSPECIFIED
--- NOTE | 2020-01-29 15:53 | PN ---
Progress Note (short form) - Note Progress Note: SUBJECTIVE: Feels better - denies CP/palpitations/lightheadedness/SOB. No abdominal pain/nausea/vomiting. OBJECTIVE: Afebrile, Hemodynamically Stable. Last Vital Signs Temp Pulse Resp BP Pulse Ox 98.2 F 76 18 112/60 97 01/29/20 14:00 01/29/20 14:00 01/29/20 14:00 01/29/20 14:00 01/29/20 14:00 Heart - S1, S2, RRR Lungs - clear to auscultation Abdomen - Umbilical Hernia, somewhat reducible. Soft, bowel sounds normal. Extremities - no edema , no calf tenderness. MS - Contractures LEs. L Buttock decubitus ulcer Stage 2/3, no surrounding cellulitis. Laboratory Results - last 24 hr 01/29/20 01/29/20 07:20 07:20 WBC 8.8 RBC 4.18 Hgb 8.3 L Hct 26.9 L MCV 64.3 L MCH 19.8 L MCHC 30.9 L RDW 25.0 H Plt Count 503 H MPV 6.7 L Sodium 138 Potassium 3.9 Chloride 107 Carbon Dioxide 25 Anion Gap 6 L BUN 12.4 Creatinine 0.9 Est GFR (CKD-EPI)AfAm 102.07 Est GFR (CKD-EPI)NonAf 88.07 Random Glucose 87 Calcium 8.4 L Phosphorus 3.8 Magnesium 2.5 H Home Medications Medication Instructions Recorded Albuterol Sulfate Inhaler - 2 puff IH Q6H PRN 01/28/20 [Ventolin HFA Inhaler -] Aspirin [ASA -] 81 mg PO DAILY 01/28/20 Atorvastatin Ca [Lipitor] 40 mg PO HS 01/28/20 Diltiazem HCl [Diltiazem 24Hr ER 240 mg PO DAILY 01/28/20 (Xr)] Lisinopril 20 mg PO DAILY 01/28/20 Montelukast Na [Singulair -] 10 mg PO DAILY 01/28/20 Salmeterol/Fluticasone [Advair 1 inh PO BID 01/28/20 100Mcg/50Mcg -] Current Medications Generic Name Dose Route Start Last Admin Trade Name Freq PRN Reason Stop Dose Admin Albuterol Sulfate 2 puff 01/28/20 11:47 Ventolin Hfa Inhaler - IH Q4H PRN SHORT OF BREATH/WHEEZING Atorvastatin Calcium 40 mg 01/28/20 22:00 01/28/20 21:36 Lipitor - PO 40 mg HS CASANDRA Administration Budesonide/Formoterol Fumarate 2 puff 01/28/20 12:00 01/29/20 09:13 Symbicort 80/4.5mcg - IH 2 puff BID CASANDRA Administration Diltiazem HCl 240 mg 01/28/20 15:00 01/29/20 09:11 Cardizem Cd - PO 240 mg DAILY CASANDRA Administration Emollient Ointment 1 applic 01/29/20 10:00 01/29/20 09:11 Aquaphor - TP 1 applic DAILY CASANDRA Administration Ceftriaxone Sodium 1 gm/ 50 mls @ 100 mls/hr 01/28/20 10:00 01/29/20 09:09 Dextrose IVPB 100 mls/hr DAILY CASANDRA Administration Lisinopril 20 mg 01/28/20 15:00 01/29/20 09:10 Prinivil PO 20 mg DAILY CASANDRA Administration Pantoprazole Sodium 40 mg 01/28/20 10:00 01/29/20 09:11 Protonix Iv IVPUSH 40 mg DAILY CASANDRA Administration Polyethylene Glycol 17 gm 01/28/20 10:00 01/29/20 09:11 Miralax (For Daily Use) - PO 17 grams DAILY CASANDRA Administration ASSESSMENT AND PLAN: 69 year old male with history of Cerebral palsy (wheelchair bound), HTN, HLD, BPH (indwelling baxter catheter), Asthma, and sent in by PCP for severe anemia (labs done 01/24/20). He reports chronic constipation and bloody TP due to hemorrhoids. Also reports occasional hematuria for years. 1. Iron Deficiency Anemia - Severe Etiology unclear, likely GI source, FOBT positive Ferritin 3.6/Iron Sat 2%. H/H 6.6/22.5 on presentation, now 8.3/26.9 s/p 2 units PRBC Eventual IV Venofer/Iron supplementation. GI evaluated for possible EGD/[place] - GI awaiting Cardiac evaluation and risk stratification. Patient cleared by Pulm and Surgery. B12 level 258, borderline - will also supplement. GI Px - Protonix 2. UTI as suggested by UA (Catheter associated UTI). Hx BPH with indwelling baxter catheter. On empiric Ceftriaxone pending Urine Cx. Long Hx of intermittent hematuria - for Urology out-patient follow up. s/p Baxter catheter change 01/27 3. Reported Cardiac History, with recount of elevated cardiac enzymes on recent admission to [facility] - GI requests Cardiology clearance prior to GI Ix. Medical records requested from [facility], awaiting fax. 4. Asthma, no evidence of acute exacerbation. GI requests Pulmonary clearance prior to GI Ix due to recent admission at [facility] for Asthma Exacerbation. Asthma is Mild/Intermittent as per Pulm. Continue Symbicort as in-patient and Ventolin PRN. 5. HTN/HLD - continue Cardizem and Lisinopril. Continue Statin. 6. Chronic L Decubitus ulcer, present on admission - Stage 2/3 - no evidence of associated infection. Silvadene dressings. 7. Umbilical Hernia, appears reducible. CT A/P - Diverticulosis, large prostate/heterogenous attenuation, L renal Calculus, Fat hernia, Renal Cysts. Surgery eval as requested by GI prior to EGD/[place] - due to fat content of hernia without colonic involvement, Surgery has cleared the patient for procedure. 8. History of BPH with indwelling baxter/L Renal Calculus/Renal Cysts CT A/P shows enlarged heterogenous Prostate with L Renal Calculus and Renal Cysts For Urology follow up on discharge. DVT PX - SCDs. No Heparin/Lovenox due to GI blood loss/severe anemia. Visit type - Emergency Visit Emergency Visit: Yes ED Registration Date: 01/27/20 Care time: The patient presented to the Emergency Department on the above date and was hospitalized for further evaluation of their emergent condition. - New Patient This patient is new to me today: No - Critical Care Critical Care patient: No - Discharge Referral Referred to [facility] Med P.C.: No - Medication Review Med list reviewed for High Risk Meds patients 65 and older: Yes
[2020-01-29] MEDS: CYANOCOBALAMIN 1,000 MCG TABLET (FP) PO SCH (17:43)
--- NOTE | 2020-01-29 20:40 | CONS ---
DATE OF CONSULTATION: 01/29/2020 REASON FOR CONSULTATION: Ventral hernia. This is a request of the medical team. BRIEF HISTORY: This is a 69-year-old male who presents to [facility] for bright red blood per rectum, which was felt to be from a hemorrhoid. The patient was being evaluated for possible inpatient colonoscopy, when he was noted to have a ventral hernia and there was concern that the hernia could involve colon and would require surgical evaluation to determine if it was safe to undergo colonoscopy and to see if the hernia could be reduced. The patient went for a CAT scan of his abdomen and pelvis, which showed that the hernia did not involve bowel. The patient's past medical history is significant for asthma, hypertension, hyperlipidemia, benign prostatic hypertrophy, cerebral palsy, wheelchair-bound. His past surgical history includes laser surgery of his prostate. Family history is negative for malignancy in the immediate family. Social history is negative for alcohol, negative for tobacco. He has no known drug allergies. Home medications include aspirin, diltiazem, Lipitor, lisinopril, Singulair, albuterol, and Advair. REVIEW OF SYSTEMS: General: Denies fatigue or malaise. Cardiac: Denies chest pain or palpitations. Respiratory: Denies shortness of breath or wheeze. Gastrointestinal: Denies nausea vomiting, admitted to seeing some blood in his stool. Genitourinary: Denies dysuria. Musculoskeletal: Denies joint pain. Admits to weakness from his cerebral palsy. PHYSICAL EXAMINATION: General: This is an obese 69-year-old male in no distress. Vital Signs: He is afebrile. His vital signs are stable. HEENT: His head is normocephalic. Sclerae are anicteric. Neck: Supple. Chest: Clear. Abdomen: Soft. He has a ventral hernia in the central portion of his abdomen. It is soft, nontender, appears to be fat containing and mostly reducible. Extremities: His extremities have trace edema. On review of his laboratories, white blood cell count is normal at 8.8. His chemistries are unremarkable. On review of his imaging, he has a CAT scan of his abdomen and pelvis that shows a fat-containing umbilical hernia without incarceration. The remainder of his CAT scan findings will not be addressed by me. ASSESSMENT: A 69-year-old male with a ventral hernia containing fat. Plans for a possible inpatient colonoscopy. No surgical contraindication to colonoscopy. If patient wishes to have the hernia repaired, he could consider elective outpatient followup. DO ZUNILDA ALVAREZ/[id number]
[2020-01-29] MEDS: ATORVASTATIN CA 40 MG TABLET (FP) PO SCH (22:03)
[2020-01-30] MEDS: POLYETHYLENE GLYCOL 3350 119 GM BTL PO SCH (10:01)
[2020-01-30] MEDS: MINERAL OIL/PET HY-PHL TOPICAL OINTMENT 454 GM JAR TP SCH (10:01)
[2020-01-30] MEDS: CYANOCOBALAMIN 1,000 MCG TABLET (FP) PO SCH (10:02)
[2020-01-30] MEDS: LISINOPRIL 20 MG TABLET (FP) PO SCH (10:02)
[2020-01-30] MEDS: PANTOPRAZOLE SODIUM 40 MG VIAL IVPUSH SCH (10:02)
[2020-01-30] MEDS: BUDESONIDE/FORMETEROL FUMARATE 80/4.5 mcg INHALER IH SCH ×2 (10:02→21:18)
--- NOTE | 2020-01-30 10:11 | EKG ---
Test Reason : Blood Pressure : / mmHG Vent. Rate : 075 BPM Atrial Rate : 075 BPM P-R Int : 204 ms QRS Dur : 096 ms QT Int : 372 ms P-R-T Axes : 005 -01 043 degrees QTc Int : 415 ms NORMAL SINUS RHYTHM NORMAL ECG WHEN COMPARED WITH ECG OF 27-JAN-2020 17:13, NO SIGNIFICANT CHANGE WAS FOUND Confirmed by Moris Hawthorne ([id number]) on 01/30/2020 10:10:52 AM Referred By: Yonny DINERO Confirmed By:Moris Hawthorne
--- NOTE | 2020-01-30 10:17 | EKG ---
Test Reason : Blood Pressure : / mmHG Vent. Rate : 090 BPM Atrial Rate : 090 BPM P-R Int : 192 ms QRS Dur : 080 ms QT Int : 332 ms P-R-T Axes : 010 -05 008 degrees QTc Int : 406 ms NORMAL SINUS RHYTHM NONSPECIFIC ST ABNORMALITY ABNORMAL ECG NO PREVIOUS ECGS AVAILABLE Confirmed by Moris Hawthorne ([id number]) on 01/30/2020 10:17:12 AM Referred By: Confirmed By:Moris Hawthorne
--- NOTE | 2020-01-30 10:38 | CONSULT ---
- Consultation REQUESTING PROVIDER: CONSULT REQUEST: We have been asked to surgically evaluate this patient for sacral decubitus ulcer PCP:Jermaine Rodriguez MD HISTORY OF PRESENT ILLNESS: 69 y/o M w/ PMHx asthma, HTN, HLD, BPH (with baxter) and cerebral palsy (wheelchair bound) presented to the ED after being sent by PCP for low hemoglobin. Wound care consulted for sacral ulcer. Pt reports he has been under the care of Dr Navarro at [facility] for his sacral decubitus ulcer for the past 4 years. States he was seen weekly, however has not gone in a while secondary to Covid. Reports the ulcer worsens when one of his aids puts him in his chair incorrectly. Has not required any surgical debridements of the ulcer in the past, denies hospitalizations or infections of the ulcer in the past. Denies cp/sob, n/v/d, fevers. PMHx: as above PSHx: greenlight laser tx of prostate Home Medications Medication Instructions Recorded Albuterol Sulfate Inhaler - 2 puff IH Q6H PRN 01/28/20 [Ventolin HFA Inhaler -] Aspirin [ASA -] 81 mg PO DAILY 01/28/20 Atorvastatin Ca [Lipitor] 40 mg PO HS 01/28/20 Diltiazem HCl [Diltiazem 24Hr ER 240 mg PO DAILY 01/28/20 (Xr)] Lisinopril 20 mg PO DAILY 01/28/20 Montelukast Na [Singulair -] 10 mg PO DAILY 01/28/20 Salmeterol/Fluticasone [Advair 1 inh PO BID 01/28/20 100Mcg/50Mcg -] Allergies Allergy/AdvReac Type Severity Reaction Status Date / Time No Known Allergies Allergy Verified 01/27/20 16:26 REVIEW OF SYSTEMS: CONSTITUTIONAL: Absent: fever, chills CARDIOVASCULAR: Absent: chest pain RESPIRATORY: Absent: cough, GASTROINTESTINAL: Absent: abdominal pain PHYSICAL EXAM: GENERAL: Awake, alert, and fully oriented, in no acute distress. HEAD: Normal with no signs of trauma. LUNGS: No accessory muscle use on RA Sacrum: large superficial ulcer on left buttock extending to sacrum (stage 1) no erythema or drainage, no crepitus. No visible deep tissue injury Vital Signs Temperature 97.7 F 01/30/20 06:00 Pulse Rate 73 08/03/20 06:00 Respiratory Rate 18 01/30/20 06:00 Blood Pressure 112/50 L 01/30/20 06:00 O2 Sat by Pulse Oximetry (%) 95 01/30/20 06:00 Lab Results WBC 8.8 K/mm3 (4.0-10.0) 01/29/20 07:20 RBC 4.18 M/mm3 (4.00-5.60) 01/29/20 07:20 Hgb 8.3 GM/dL (11.7-16.9) L 01/29/20 07:20 Hct 26.9 % (35.4-49) L 01/29/20 07:20 MCV 64.3 fl (80-96) L 01/29/20 07:20 MCHC 30.9 g/dl (32.0-35.9) L 01/29/20 07:20 RDW 25.0 % (11.9-15.9) H 01/29/20 07:20 Plt Count 503 K/MM3 (134-434) H 01/29/20 07:20 INR 1.12 (0.83-1.09) H 01/27/20 18:11 Sodium 138 mmol/L (136-145) 01/29/20 07:20 Potassium 3.9 mmol/L (3.5-5.1) 01/29/20 07:20 Chloride 107 mmol/L (98-107) 01/29/20 07:20 Carbon Dioxide 25 mmol/L (21-32) 01/29/20 07:20 Anion Gap 6 MMOL/L (8-16) L 01/29/20 07:20 BUN 12.4 mg/dL (7-18) 01/29/20 07:20 Creatinine 0.9 mg/dL (0.55-1.3) 01/29/20 07:20 Random Glucose 87 mg/dL (74-106) 01/29/20 07:20 Calcium 8.4 mg/dL (8.5-10.1) L 01/29/20 07:20 Blood Type Cancelled 01/27/20 19:55 Blood Type O POSITIVE 01/27/20 19:55 Antibody Screen Cancelled 01/27/20 19:55 A/P: 69 y/o M w/ PMHx asthma, HTN, HLD, BPH (with baxter) and cerebral palsy (wheelchair bound) presented to the ED after being sent by PCP for low hemoglobin. Wound care consulted for sacral ulcer. stage 1 sacral decubitus ulcer -Reposition every two hours while in bed -Air mattress recommended -Use drawsheets and Trendelenburg when repositioning to reduce friction and shear -Manageincontinence via timely cleansing, use of appropriate incontinence disposables and use of barrier ointment to intact skin -Ensure adequate hydration/nutrition, supplementation per primary team -Ensure off-loading to all bony areas (heels, ankles, hips and tailbone) with Allevyn/Optifoam -Clean open wounds with normal saline and apply Silvadene d/w attending Dr Silva
--- NOTE | 2020-01-30 10:40 | PN ---
Progress Note (short form) - Note Progress Note: PULMONARY Awake/alert Asthma is baseline VSS/Afebrile Gen: NAD at rest Heart: RRR Lung: decreased breath sounds at the bases Abd: soft, nontender Ext: no edema labs/meds/notes/images reviewed A/P Anemia r/o GI Bleed UTI Asthma HTN Hyperlipidemia BPH Cerebral Palsy - asthma at baseline - symbicort while inpatient (formulary) and resume advair as outpt - albuterol as needed - DVT prophylaxis - no pulmonary contraindications for planned endoscopy Teresita PLUMMER MD
[2020-01-30 11:08] LABS: BASO % 1.8 % (0-2.0); EOS % 5.9 % (0-4.5); HEMATOCRIT 28.4 % (35.4-49); HEMOGLOBIN 8.5 GM/dL (11.7-16.9); LYMPH % 17.9 % (8-40); MCHC 29.9 g/dl (32.0-35.9); MEAN CELL VOLUME 64.8 fl (80-96); MEAN PLT VOLUME 6.6 fl (7.5-11.1); MONO % 11.2 % (3.8-10.2); NEUT % 63.2 % (42.8-82.8); PLATELET COUNT 552 K/MM3 (134-434); RBC 4.38 M/mm3 (4.00-5.60); RDW 26.1 % (11.9-15.9); WHITE BLOOD COUNT 8.3 K/mm3 (4.0-10.0)
[2020-01-30 11:20] LABS: MCH 19.4 pg (25.7-33.7)
[2020-01-30 11:32] LABS: BLOOD UREA NITROGEN 11.6 mg/dL (7-18); CALCIUM 8.7 mg/dL (8.5-10.1); CREATININE 0.8 mg/dL (0.55-1.3); POTASSIUM 3.9 mmol/L (3.5-5.1)
--- NOTE | 2020-01-30 14:50 | PN ---
Progress Note (short form) - Note Progress Note: Awaiting cardiology clearance. Advancing diet today. Wiull place back on clears tomorrow for possible EGD/colonoscopy 01/31. Explained to patient. COVID testing will 01/31. Problem List - Problems (1) Iron deficiency anemia Code(s): D50.9 - IRON DEFICIENCY ANEMIA, UNSPECIFIED
--- NOTE | 2020-01-30 14:53 | PN ---
Progress Note (short form) - Note Progress Note: Chief Complaint: no cp/sob/palps/dizzy, feels well History of Present Illness: 69 yo male here with bleeding, anemia has had bleeding from buttock decubitus. ? if rectal bleed as well. no prior GI scopes--currently being considered here. due to report of elevated cardiac enzymes at [place] recently, in setting of asthma exacerbation, we were asked to evaluate his cardiac risk for procedures. says he was told at [facility] that the asthma "put a strain on my heart". never had cp then or presently. or at home--though is not ambulatory. no sob since back home no palp, syncope sees dr serrato for cardiology PMH: HTN HPL BPH, indwelling baxter UTIs - Current Medication List Current Medications: Active Medications Albuterol Sulfate (Ventolin Hfa Inhaler -) 2 puff IH Q4H PRN PRN Reason: SHORT OF BREATH/WHEEZING Atorvastatin Calcium (Lipitor -) 40 mg PO HS [facility] Last Admin: 01/28/20 21:36 Dose: 40 mg Documented by: Budesonide/Formoterol Fumarate (Symbicort 80/4.5mcg -) 2 puff IH BID [facility] Last Admin: 01/29/20 09:13 Dose: 2 puff Documented by: Diltiazem HCl (Cardizem Cd -) 240 mg PO DAILY [facility] Last Admin: 01/29/20 09:11 Dose: 240 mg Documented by: Emollient Ointment (Aquaphor -) 1 applic TP DAILY [facility] Last Admin: 01/29/20 09:11 Dose: 1 applic Documented by: Ceftriaxone Sodium 1 gm/ (Dextrose) 50 mls @ 100 mls/hr IVPB DAILY [facility] Last Admin: 01/29/20 09:09 Dose: 100 mls/hr Documented by: Lisinopril (Prinivil) 20 mg PO DAILY [facility] Last Admin: 01/29/20 09:10 Dose: 20 mg Documented by: Pantoprazole Sodium (Protonix Iv) 40 mg IVPUSH DAILY [facility] Last Admin: 01/29/20 09:11 Dose: 40 mg Documented by: Polyethylene Glycol (Miralax (For Daily Use) -) 17 gm PO DAILY [facility] Last Admin: 01/29/20 09:11 Dose: 17 grams Documented by: - Objective Vital Signs: Vital Signs Period Temp Pulse Resp BP Sys/Encinas Pulse Ox Last 24 Hr 97.7 F-98.9 F 72-89 18-18 111-118/50-72 95-97 Constitutional: Yes: No Distress, Calm Eyes: Yes: Conjunctiva Clear Neck: Yes: Supple, Trachea Midline Cardiovascular: Yes: Regular Rate and Rhythm Respiratory: Yes: CTA Bilaterally (no rales or wheezing) Gastrointestinal: Yes: Soft (nt) Edema: No Neurological: Yes: Alert, Oriented no jaundice diaphoresis Labs: CBC, BMP 01/30/20 09:30 01/30/20 09:30 Assessment/Plan ECG: NSR, unremarkable severe iron deficiency anemia, preop CV eval: -management per primary team -recent report of "elevated heart enzymes" at [facility], with cardio followup at that time. please obtain records of troponins and any echo or stress test which was performed -further rec.s to follow HTN: -Stable an controlled on Diltiazem HPL: -outpt f/u asthma: -per primary team
[2020-01-30] MEDS: SILVER SULFADIAZINE 1% TOP CREAM 50 GM JAR TP SCH (15:49)
--- NOTE | 2020-01-30 16:54 | PN ---
Teaching Attending Note Name of Resident: Bradly Rosales ATTENDING PHYSICIAN STATEMENT I saw and evaluated the patient. I reviewed the resident's note and discussed the case with the resident. I agree with the resident's findings and plan as documented. SUBJECTIVE: Feels better - denies CP/palpitations/lightheadedness/SOB. No abdominal pain/nausea/vomiting. OBJECTIVE: Afebrile, Hemodynamically Stable. Last Vital Signs Temp Pulse Resp BP Pulse Ox 98.1 F 89 18 118/72 96 01/30/20 14:01/30/20 14:00 01/30/20 14:01/30/20 14:01/30/20 14:00 Heart - S1, S2, RRR Lungs - clear to auscultation Abdomen - Umbilical Hernia, somewhat reducible. Soft, bowel sounds normal. Extremities - no edema , no calf tenderness. MS - Contractures LEs. Large L Buttock decubitus ulcer Stage 2, no surrounding cellulitis. Laboratory Results - last 24 hr 01/27/20 01/30/20 01/30/20 22:58 09:30 09:30 WBC 8.3 RBC 4.38 Hgb 8.5 L Hct 28.4 L MCV 64.8 L MCH 19.4 L MCHC 29.9 L RDW 26.1 H Plt Count 552 H MPV 6.6 L Absolute Neuts (auto) 5.3 Neutrophils % 63.2 Lymphocytes % 17.9 Monocytes % 11.2 H Eosinophils % 5.9 H Basophils % 1.8 Nucleated RBC % 0 Sodium 139 Potassium 3.9 Chloride 108 H Carbon Dioxide 26 Anion Gap 5 L BUN 11.6 Creatinine 0.8 Est GFR (CKD-EPI)AfAm 107.13 Est GFR (CKD-EPI)NonAf 92.44 Random Glucose 53 L Calcium 8.7 COVID-19 (TOY) Not detected Current Medications Generic Name Dose Route Start Last Admin Trade Name Freq PRN Reason Stop Dose Admin Albuterol Sulfate 2 puff 01/28/20 11:47 Ventolin Hfa Inhaler - IH Q4H PRN SHORT OF BREATH/WHEEZING Atorvastatin Calcium 40 mg 01/28/20 22:00 01/29/20 22:03 Lipitor - PO 40 mg HS CASANDRA Administration Budesonide/Formoterol Fumarate 2 puff 01/28/20 12:00 01/30/20 10:02 Symbicort 80/4.5mcg - IH 2 puff BID CASANDRA Administration Cyanocobalamin 1,000 mcg 01/29/20 16:00 01/30/20 10:02 Vitamin B12 - PO 1,000 mcg DAILY CASANDRA Administration Diltiazem HCl 240 mg 01/28/20 15:00 01/30/20 10:01 Cardizem Cd - PO 240 mg DAILY CASANDRA Administration Emollient Ointment 1 applic 01/29/20 10:00 01/30/20 10:01 Aquaphor - TP 1 applic DAILY CASANDRA Administration Lisinopril 20 mg 01/28/20 15:00 01/30/20 10:02 Prinivil PO 20 mg DAILY CASANDRA Administration Pantoprazole Sodium 40 mg 01/28/20 10:00 01/30/20 10:02 Protonix Iv IVPUSH 40 mg DAILY CASANDRA Administration Polyethylene Glycol 17 gm 01/28/20 10:00 01/30/20 10:01 Miralax (For Daily Use) - PO 17 grams DAILY CASANDRA Administration Silver Sulfadiazine 1 applic 01/30/20 15:00 01/30/20 15:49 Silvadene - TP 1 applic DAILY CASANDRA Administration Home Medications Medication Instructions Recorded Albuterol Sulfate Inhaler - 2 puff IH Q6H PRN 01/28/20 [Ventolin HFA Inhaler -] Aspirin [ASA -] 81 mg PO DAILY 01/28/20 Atorvastatin Ca [Lipitor] 40 mg PO HS 01/28/20 Diltiazem HCl [Diltiazem 24Hr ER 240 mg PO DAILY 01/28/20 (Xr)] Lisinopril 20 mg PO DAILY 01/28/20 Montelukast Na [Singulair -] 10 mg PO DAILY 01/28/20 Salmeterol/Fluticasone [Advair 1 inh PO BID 01/28/20 100Mcg/50Mcg -] ASSESSMENT AND PLAN: 69 year old male with history of Cerebral palsy (wheelchair bound), HTN, HLD, BP H (indwelling baxter catheter), Asthma, and sent in by PCP for severe anemia (labs done 01/24/20). He reports chronic constipation and bloody TP due to hemorrhoids. Also reports occasional hematuria for years. 1. Iron Deficiency Anemia - Severe Etiology unclear, likely GI source, FOBT positive Ferritin 3.6/Iron Sat 2%. H/H 6.6/22.5 on presentation, now 8.5/28.4 s/p 2 units PRBC Will give IV Venofer and will eventually need oral Iron supplementation. GI evaluated for possible EGD/[place] - GI awaiting Cardiac risk stratification/clearance. Patient cleared by Pulm and Surgery. B12 level 258, borderline - will also supplement. GI Px - Protonix 2. UTI ruled out - urine cx negative. Hx BPH with indwelling baxter catheter. On empiric Ceftriaxone - will discontinue. Long Hx of intermittent hematuria - for Urology out-patient follow up. s/p Baxter catheter change 01/27 3. Reported Cardiac History, with recount of elevated cardiac enzymes on recent admission to [facility] - GI requests Cardiology clearance prior to GI Ix. Medical records obtained from [facility], awaiting Cardiology review and recommendations. Echo ordered. 4. Asthma, no evidence of acute exacerbation. GI requests Pulmonary clearance prior to GI Ix due to recent admission at [facility] for Asthma Exacerbation. Asthma is Mild/Intermittent as per Pulm. Continue Symbicort as in-patient and Ventolin PRN. 5. HTN/HLD - continue Cardizem and Lisinopril. Continue Statin. 6. Chronic L Decubitus ulcer, present on admission - Stage 2/3 - no evidence of associated infection. Silvadene dressings. Wound Care consulted. 7. Umbilical Hernia, appears reducible. CT A/P - Diverticulosis, large prostate/heterogenous attenuation, L renal Calculus, Fat hernia, Renal Cysts. Surgery eval as requested by GI prior to EGD/[place] - due to fat content of hernia without colonic involvement, Surgery has cleared the patient for procedure. 8. History of BPH with indwelling baxter/L Renal Calculus/Renal Cysts CT A/P shows enlarged heterogenous Prostate with L Renal Calculus and Renal Cysts For Urology follow up on discharge. Follows with Dr. Russell at [facility]. DVT PX - SCDs. No Heparin/Lovenox due to GI blood loss/severe anemia.
[2020-01-30] MEDS ORDERED: IRON SUCROSE INJECTION 200 MG in SODIUM CHLORIDE 90 ML IVPB ONE (17:02)
[2020-01-30] MEDS: ATORVASTATIN CA 40 MG TABLET (FP) PO SCH (21:18)
--- NOTE | 2020-01-30 23:07 | PN ---
Physical Exam: SUBJECTIVE: No overnight events. Patient seen and examined. No complaints. Endorses 1 BM. OBJECTIVE: Vital Signs Period Temp Pulse Resp BP Sys/Encinas Pulse Ox Last 24 Hr 97.7 F-98.4 F 73-89 18-20 99-118/49-72 93-96 GENERAL: The patient is awake, alert, and fully oriented, in no acute distress. HEENT: Normal with no signs of trauma. No ptosis. moist mucous membranes. LUNGS: Breath sounds equal, clear to auscultation bilaterally, no wheezes, no crackles, no accessory muscle use. HEART: Regular rate and rhythm, S1, S2 without murmur, rub or gallop. ABDOMEN: Soft, nontender, nondistended, hypoactive bowel sounds, umbilical hernia EXTREMITIES: 2+ pulses, warm, well-perfused, no edema. contracture in Lower extremity. stage 2 decubitus ulcer on L buttock. no edema. NEUROLOGICAL: Normal speech, gait not observed. PSYCH: Normal mood, normal affect. Laboratory Results - last 24 hr 01/30/20 01/30/20 09:30 09:30 WBC 8.3 RBC 4.38 Hgb 8.5 L Hct 28.4 L MCV 64.8 L MCH 19.4 L MCHC 29.9 L RDW 26.1 H Plt Count 552 H MPV 6.6 L Absolute Neuts (auto) 5.3 Neutrophils % 63.2 Lymphocytes % 17.9 Monocytes % 11.2 H Eosinophils % 5.9 H Basophils % 1.8 Nucleated RBC % 0 Sodium 139 Potassium 3.9 Chloride 108 H Carbon Dioxide 26 Anion Gap 5 L BUN 11.6 Creatinine 0.8 Est GFR (CKD-EPI)AfAm 107.13 Est GFR (CKD-EPI)NonAf 92.44 Random Glucose 53 L Calcium 8.7 Active Medications Generic Name Dose Route Start Last Admin Trade Name Freq PRN Reason Stop Dose Admin Albuterol Sulfate 2 puff 01/28/20 11:47 Ventolin Hfa Inhaler - IH Q4H PRN SHORT OF BREATH/WHEEZING Atorvastatin Calcium 40 mg 01/28/20 22:00 01/30/20 21:18 Lipitor - PO 40 mg HS CASANDRA Administration Budesonide/Formoterol Fumarate 2 puff 01/28/20 12:00 01/30/20 21:18 Symbicort 80/4.5mcg - IH 2 puff BID CASANDRA Administration Cyanocobalamin 1,000 mcg 01/29/20 16:00 01/30/20 10:02 Vitamin B12 - PO 1,000 mcg DAILY CASANDRA Administration Diltiazem HCl 240 mg 01/28/20 15:00 01/30/20 10:01 Cardizem Cd - PO 240 mg DAILY CASANDRA Administration Emollient Ointment 1 applic 01/29/20 10:00 01/30/20 10:01 Aquaphor - TP 1 applic DAILY CASANDRA Administration Iron Sucrose 200 mg/ Sodium 100 mls @ 100 mls/hr 01/31/20 17:00 Chloride IVPB 01/31/20 17:59 ONCE ONE Lisinopril 20 mg 01/28/20 15:00 01/30/20 10:02 Prinivil PO 20 mg DAILY CASANDRA Administration Pantoprazole Sodium 40 mg 01/28/20 10:00 01/30/20 10:02 Protonix Iv IVPUSH 40 mg DAILY CASANDRA Administration Polyethylene Glycol 17 gm 01/28/20 10:00 01/30/20 10:01 Miralax (For Daily Use) - PO 17 grams DAILY CASANDRA Administration Silver Sulfadiazine 1 applic 01/30/20 15:00 01/30/20 15:49 Silvadene - TP 1 applic DAILY CASANDRA Administration CTAP- Diverticulosis, large prostate/heterogenous attenuation, L renal Calculus, Fat hernia, Renal Cysts. ASSESSMENT/PLAN: 69 YO M PMH asthma, HTN, HLD, BPH w/ indwelling baxter catheter, & Cerebral palsy (wheelchair bound) was sent in by PCP for severe anemia (CBC on 01/24/20). #Iron Deficiency Anemia -H/H 6.6/22.5 on admission. s/p 2 units PRBC -FOBT positive -LOW: Iron (10), Ferritin (3.6), Iron Sat (2%) - HIGH: Unsaturated IBC (392) NORMAL: TIBC (402) Folate 28 - Vitamin B 12: 258 borderline. Vitamin B12 ordered -s/p 200 mg venofer today. One dose of 200 mg venofer tomorrow. -will need oral Iron supplementation on d/c -GI c/s appreciated. possible EGD/colonoscopy 01/31, pending cardio clearance. Patient cleared by Pulm and Surgery. COVID testing will 01/31. -echo ordered #UTI was r/o -UA: protein 2+, blood 3+, 292 RBCs, nitrite positive, leukocyte esterase 3+, 647 WBCs, bacteria 6919, epithelial cells 7 -ucx negative. de ceftriaxone -baxter changed every 6 weeks. s/p Baxter change 01/27. last UTI over 6 months ago -h/o intermittent hematuria. f/u outpt w/ urologist #Asthma -pulm c/s appreciated. Asthma is Mild/Intermittent -c/w symbicort and alubterol PRN -resume advair as outpt #L Decubitus ulcer on admission -Stage 2. -Wound care c/s appreciated. -Reposition Q2H in bed, Air mattress -Utilize Trendelenburg & drawsheets when repositioning to decrease shear/friction -timely cleansing to manage incontinence. -off-load bony regions w/ Allevyn/Optifoam -Clean wounds w/ NS. Apply Silvadene #Umbilical Hernia -reducible -CTAP: fat hernia -sgy cleared pt for EGD/colonoscopy #HTN -c/w Cardizem and Lisinopril #HLD: C/w atorvastatin 40 mg PO HS #BPH with indwelling baxter CTAP: large prostate/heterogenous attenuation, L renal Calculus, Renal Cysts. -urology f/u outpt at de. Dr. Russell at [facility]. #DVT PPX SCDs no AC 2/2 severe anemia #FEN no IVF monitor lytes start sodium controlled diet tonight. Will be on clears tomorrow for colonoscopy #RENEEO ly med surg Visit type - Emergency Visit Emergency Visit: Yes ED Registration Date: 01/27/20 Care time: The patient presented to the Emergency Department on the above date and was hospitalized for further evaluation of their emergent condition. - New Patient This patient is new to me today: No - Critical Care Critical Care patient: No - Medication Review Med list reviewed for High Risk Meds patients 65 and older: Yes ATTENDING PHYSICIAN STATEMENT I saw and evaluated the patient. I reviewed the resident's note and discussed the case with the resident. I agree with the resident's findings and plan as documented. SUBJECTIVE: OBJECTIVE: ASSESSMENT AND PLAN:
[2020-01-31 07:54] LABS: HEMATOCRIT 27.4 % (35.4-49); HEMOGLOBIN 8.4 GM/dL (11.7-16.9); MCH 20.2 pg (25.7-33.7); MCHC 30.6 g/dl (32.0-35.9); MEAN CELL VOLUME 65.9 fl (80-96); MEAN PLT VOLUME 6.9 fl (7.5-11.1); PLATELET COUNT 491 K/MM3 (134-434); RBC 4.16 M/mm3 (4.00-5.60); RDW 26.3 % (11.9-15.9); WHITE BLOOD COUNT 7.6 K/mm3 (4.0-10.0)
[2020-01-31 08:30] LABS: BLOOD UREA NITROGEN 9.9 mg/dL (7-18); CALCIUM 8.5 mg/dL (8.5-10.1); CREATININE 0.8 mg/dL (0.55-1.3); MAGNESIUM 2.4 mg/dL (1.8-2.4); POTASSIUM 3.8 mmol/L (3.5-5.1)
[2020-01-31] MEDS: PANTOPRAZOLE SODIUM 40 MG VIAL IVPUSH SCH (09:22)
[2020-01-31] MEDS: MINERAL OIL/PET HY-PHL TOPICAL OINTMENT 454 GM JAR TP SCH (09:23)
[2020-01-31] MEDS: POLYETHYLENE GLYCOL 3350 119 GM BTL PO SCH (09:23)
[2020-01-31] MEDS: LISINOPRIL 20 MG TABLET (FP) PO SCH (09:23)
[2020-01-31] MEDS: SILVER SULFADIAZINE 1% TOP CREAM 50 GM JAR TP SCH (09:25)
[2020-01-31] MEDS: BUDESONIDE/FORMETEROL FUMARATE 80/4.5 mcg INHALER IH SCH ×2 (09:25→20:59)
[2020-01-31] MEDS: CYANOCOBALAMIN 1,000 MCG TABLET (FP) PO SCH (09:29)
--- NOTE | 2020-01-31 11:18 | ECHO ---
Version: 1 Name: MARBELLA KERR Exam: Adult Echocardiogram Study Date: 01/31/2020, 7:40 AM Age: 69 Years MMode/2D Measurements & Calculations IVSd: 1.56 cm LVIDs: 2.06 cm LVIDd: 3.5 cm LVPWd: 1.18 cm ACS: 2.27 cm Ao root diam: 3.8 cm LVOT diam: 2.45 cm LA dimension: 4.1 cm Doppler Measurements & Calculations MV E max bal: 74.5 cm/sec MV V2 max: 90.9 cm/sec MV A max bal: 64.2 cm/sec MV max P.3 mmHg MV mean P.79 mmHg Med E/e': 9.4 MV E/A: 1.16 Med Peak E' Bal: 7.9 cm/sec Lat E/e': 7.4 Lat Peak E' Bal: 10.1 cm/sec Ao max P.5 mmHg Ao mean P.9 mmHg Ao V2 max: 137.1 cm/sec AI P1/2t: 929.5 msec TR max bal: 213.1 cm/sec TR max P.2 mmHg Procedure The study was technically limited with all images being suboptimal in quality. Left Ventricle The left ventricular size, thickness and function are normal. Ejection Fraction = 65%. The transmitr al spectral Doppler flow pattern is suggestive of impaired LV relaxation. Right Ventricle The right ventricle is normal in size and function. Atria The left atrium is mildly dilated. Right atrial size is normal. Mitral Valve There is mild mitral valve thickening. There is mild mitral regurgitation. Tricuspid Valve The tricuspid valve is not well visualized, but is grossly normal. There is mild tricuspid regurgita tion. Aortic Valve There is mild aortic valve thickening. No aortic regurgitation is present. Pulmonic Valve The pulmonic valve is not well visualized. Great Vessels The aortic root is normal size. Normal aortic arch, descending and ascending aorta. Pericardium/Pleura There is no pericardial effusion. Tech Comments Technically difficult study due to body habitus. Summary Statements The study was technically limited with all images being suboptimal in quality. The left ventricular size, thickness and function are normal The right ventricle is normal in size and function. The left atrium is mildly dilated. Right atrial size is normal. There is mild mitral valve thickening. There is mild mitral regurgitation. The tricuspid valve is not well visualized, but is grossly normal. There is mild tricuspid regurgitation. There is mild aortic valve thickening. No aortic regurgitation is present. The pulmonic valve is not well visualized. The aortic root is normal size. Normal aortic arch, descending and ascending aorta There is no pericardial effusion. Ejection Fraction = 65%. The transmitral spectral Doppler flow pattern is suggestive of impaired LV relaxation. Eric Brandg 01/31/2020, 11:18 AM Ordering Physician: Jermaine Tong Referring Physician: JERMAINE TONG Performed By: Jadon Powell
--- NOTE | 2020-01-31 11:40 | PN ---
Progress Note (short form) - Note Progress Note: cc: anemia s: no chest pain, palps, dizziness, dyspnea no smoking Current Medications Generic Name Dose Route Start Last Admin Trade Name Freq PRN Reason Stop Dose Admin Albuterol Sulfate 2 puff 01/28/20 11:47 Ventolin Hfa Inhaler - IH Q4H PRN SHORT OF BREATH/WHEEZING Atorvastatin Calcium 40 mg 01/28/20 22:00 01/30/20 21:18 Lipitor - PO 40 mg HS [facility]AN[facility]A Administration Bisacodyl 20 mg 01/31/20 15:00 Dulcolax - PO 01/31/20 15:01 ONCE ONE Budesonide/Formoterol Fumarate 2 puff 01/28/20 12:00 01/31/20 09:25 Symbicort 80/4.5mcg - IH 2 puff BID CASAN[facility]A Administration Cyanocobalamin 1,000 mcg 01/29/20 16:00 01/31/20 09:29 Vitamin B12 - PO 1,000 mcg DAILY [facility]AN[facility]A Administration Diltiazem HCl 240 mg 01/28/20 15:00 01/31/20 09:23 Cardizem Cd - PO 240 mg DAILY [facility] Administration Emollient Ointment 1 applic 01/29/20 10:00 01/31/20 09:23 Aquaphor - TP 1 applic DAILY [facility] Administration Iron Sucrose 200 mg/ Sodium 100 mls @ 100 mls/hr 01/31/20 17:00 Chloride IVPB 01/31/20 17:59 ONCE ONE Lisinopril 20 mg 01/28/20 15:00 01/31/20 09:23 Prinivil PO 20 mg DAILY [facility] Administration Pantoprazole Sodium 40 mg 01/28/20 10:00 01/31/20 09:22 Protonix Iv IVPUSH 40 mg DAILY [facility]A Administration Polyethylene Glycol 17 gm 01/28/20 10:00 01/31/20 09:23 Miralax (For Daily Use) - PO 17 grams DAILY [facility] Administration Polyethylene Glycol/Electrolytes 4,000 ml 01/31/20 16:00 Golytely Solution - PO 01/31/20 16:01 ONCE ONE Silver Sulfadiazine 1 applic 01/30/20 15:00 01/31/20 09:25 Silvadene - TP 1 applic DAILY [facility] Administration Vital Signs Period Temp Pulse Resp BP Sys/Encinas Pulse Ox Last 24 Hr 98 F-98.5 F 73-89 18-20 99-127/49-72 91-96 Constitutional: Yes: No Distress, Calm Eyes: Yes: Conjunctiva Clear Neck: Yes: Supple, Trachea Midline Cardiovascular: Yes: Regular Rate and Rhythm Respiratory: Yes: CTA Bilaterally (no rales or wheezing) Gastrointestinal: Yes: Soft (nt) Edema: No Neurological: Yes: Alert, Oriented no jaundice diaphoresis not agitated Assessment/Plan ECG: NSR, unremarkable echo 01/2020 tds, nl LV/RV function, LA mildly dialted, mild MR, mild TR, impaired LV relaxation severe iron deficiency anemia, preop CV eval: -recent report of "elevated heart enzymes" at [place], with cardio followup at that time. reviewed records sent from [place], Dr Parker internet security specialist from 01/16, notes patient had mildly elevated troponin in setting of asthma exacerbation in November, likely demand. no chest pain or EKG changes at the time. Had echo scheduled with plan for stress test if any wma seen - echo done here - unremarkable, patient remains asymptomatic - he is at acceptable risk for EGD/colonoscopy, no further cardiac testing at this point HTN: -Stable an controlled on Diltiazem HPL: -outpt f/u asthma: -per primary team
--- NOTE | 2020-01-31 12:31 | PN ---
Progress Note (short form) - Note Progress Note: Denies shortness of breath, cough or wheezing. No acute events overnight. Intake & Output 01/28/20 01/29/20 01/30/20 01/31/20 23:59 23:59 23:59 23:59 Intake Total 1010 50 400 Output Total 2200 2700 3100 1000 Balance -1190 -2650 -2700 -1000 Weight 207 lb Last Vital Signs Temp Pulse Resp BP Pulse Ox 98.5 F 78 20 127/70 93 L 01/31/20 09:33 01/31/20 09:33 01/31/20 09:33 01/31/20 09:33 01/31/20 09:33 Active Medications Albuterol Sulfate (Ventolin Hfa Inhaler -) 2 puff IH Q4H PRN PRN Reason: SHORT OF BREATH/WHEEZING Atorvastatin Calcium (Lipitor -) 40 mg PO HS [facility] Last Admin: 01/30/20 21:18 Dose: 40 mg Documented by: Bisacodyl (Dulcolax -) 20 mg PO ONCE ONE Stop: 01/31/20 15:01 Budesonide/Formoterol Fumarate (Symbicort 80/4.5mcg -) 2 puff IH BID [facility] Last Admin: 01/31/20 09:25 Dose: 2 puff Documented by: Cyanocobalamin (Vitamin B12 -) 1,000 mcg PO DAILY [facility] Last Admin: 01/31/20 09:29 Dose: 1,000 mcg Documented by: Diltiazem HCl (Cardizem Cd -) 240 mg PO DAILY [facility] Last Admin: 01/31/20 09:23 Dose: 240 mg Documented by: Emollient Ointment (Aquaphor -) 1 applic TP DAILY [facility] Last Admin: 01/31/20 09:23 Dose: 1 applic Documented by: Iron Sucrose 200 mg/ Sodium (Chloride) 100 mls @ 100 mls/hr IVPB ONCE ONE Stop: 01/31/20 17:59 Lisinopril (Prinivil) 20 mg PO DAILY [facility] Last Admin: 01/31/20 09:23 Dose: 20 mg Documented by: Pantoprazole Sodium (Protonix Iv) 40 mg IVPUSH DAILY [facility] Last Admin: 01/31/20 09:22 Dose: 40 mg Documented by: Polyethylene Glycol (Miralax (For Daily Use) -) 17 gm PO DAILY [facility] Last Admin: 01/31/20 09:23 Dose: 17 grams Documented by: Polyethylene Glycol/Electrolytes (Golytely Solution -) 4,000 ml PO ONCE ONE Stop: 01/31/20 16:01 Silver Sulfadiazine (Silvadene -) 1 applic TP DAILY [facility] Last Admin: 01/31/20 09:25 Dose: 1 applic Documented by: Gen: NAD at rest Heart: RRR Lung: decreased breath sounds at the bases Abd: soft, nontender Ext: no edema Laboratory Results - last 24 hr 01/27/20 01/29/20 01/31/20 18:11 07:20 07:06 WBC 7.6 RBC 4.16 Hgb 8.4 L Hct 27.4 L MCV 65.9 L MCH 20.2 L MCHC 30.6 L RDW 26.3 H Plt Count 491 H MPV 6.9 L Sodium Potassium Chloride Carbon Dioxide Anion Gap BUN Creatinine Est GFR (CKD-EPI)AfAm Est GFR (CKD-EPI)NonAf Random Glucose Calcium Magnesium Prostate Specific Ag 10.00 H Blood Type O POSITIVE Antibody Screen Negative Crossmatch See Detail 01/31/20 07:06 WBC RBC Hgb Hct MCV MCH MCHC RDW Plt Count MPV Sodium 141 Potassium 3.8 Chloride 109 H Carbon Dioxide 23 Anion Gap 9 BUN 9.9 Creatinine 0.8 Est GFR (CKD-EPI)AfAm 107.13 Est GFR (CKD-EPI)NonAf 92.44 Random Glucose 85 Calcium 8.5 Magnesium 2.4 Prostate Specific Ag Blood Type Antibody Screen Crossmatch A/P Stable Mild Persistent Asthma Anemia r/o GI Bleed UTI HTN Hyperlipidemia BPH Cerebral Palsy - symbicort while inpatient (formulary) and resume advair as outpt - albuterol as needed - DVT prophylaxis - no pulmonary contraindications for planned endoscopy Dr Lai
[2020-01-31] MEDS ORDERED: BISACODYL 5 MG TABLET.DR (FP) PO ONE (15:00)
--- NOTE | 2020-01-31 15:51 | PN ---
Physical Exam: SUBJECTIVE: No overnight events. Patient seen and examined. No complaints. Endorses 1 BM in AM. OBJECTIVE: Vital Signs Period Temp Pulse Resp BP Sys/Encinas Pulse Ox Last 24 Hr 97.3 F-98.5 F 73-87 18-20 99-133/49-70 91-96 GENERAL: The patient is awake, alert, and fully oriented, in no acute distress. HEENT: Normal with no signs of trauma. No ptosis. moist mucous membranes. LUNGS: Breath sounds equal, clear to auscultation bilaterally, no wheezes, no crackles, no accessory muscle use. HEART: Regular rate and rhythm, S1, S2 without murmur, rub or gallop. ABDOMEN: Soft, nontender, nondistended, hypoactive bowel sounds, umbilical hernia EXTREMITIES: 2+ pulses, warm, well-perfused, no edema. contracture in Lower extremity. stage 2 decubitus ulcer on L buttock. no edema. NEUROLOGICAL: Normal speech, gait not observed. PSYCH: Normal mood, normal affect. Laboratory Results - last 24 hr 01/27/20 01/29/20 01/31/20 18:11 07:20 07:06 WBC 7.6 RBC 4.16 Hgb 8.4 L Hct 27.4 L MCV 65.9 L MCH 20.2 L MCHC 30.6 L RDW 26.3 H Plt Count 491 H MPV 6.9 L Sodium Potassium Chloride Carbon Dioxide Anion Gap BUN Creatinine Est GFR (CKD-EPI)AfAm Est GFR (CKD-EPI)NonAf Random Glucose Calcium Magnesium Prostate Specific Ag 10.00 H Blood Type O POSITIVE Antibody Screen Negative Crossmatch See Detail 01/31/20 07:06 WBC RBC Hgb Hct MCV MCH MCHC RDW Plt Count MPV Sodium 141 Potassium 3.8 Chloride 109 H Carbon Dioxide 23 Anion Gap 9 BUN 9.9 Creatinine 0.8 Est GFR (CKD-EPI)AfAm 107.13 Est GFR (CKD-EPI)NonAf 92.44 Random Glucose 85 Calcium 8.5 Magnesium 2.4 Prostate Specific Ag Blood Type Antibody Screen Crossmatch Active Medications Generic Name Dose Route Start Last Admin Trade Name Freq PRN Reason Stop Dose Admin Albuterol Sulfate 2 puff 01/28/20 11:47 Ventolin Hfa Inhaler - IH Q4H PRN SHORT OF BREATH/WHEEZING Atorvastatin Calcium 40 mg 01/28/20 22:00 08/03/20 21:18 Lipitor - PO 40 mg HS CASANDRA Administration Budesonide/Formoterol Fumarate 2 puff 01/28/20 12:00 01/31/20 09:25 Symbicort 80/4.5mcg - IH 2 puff BID CASANDRA Administration Cyanocobalamin 1,000 mcg 01/29/20 16:00 01/31/20 09:29 Vitamin B12 - PO 1,000 mcg DAILY CASANDRA Administration Diltiazem HCl 240 mg 01/28/20 15:00 01/31/20 09:23 Cardizem Cd - PO 240 mg DAILY CASANDRA Administration Emollient Ointment 1 applic 01/29/20 10:00 01/31/20 09:23 Aquaphor - TP 1 applic DAILY CASANDRA Administration Iron Sucrose 200 mg/ Sodium 100 mls @ 100 mls/hr 01/31/20 17:00 Chloride IVPB 01/31/20 17:59 ONCE ONE Lisinopril 20 mg 01/28/20 15:00 01/31/20 09:23 Prinivil PO 20 mg DAILY CASANDRA Administration Pantoprazole Sodium 40 mg 01/28/20 10:00 01/31/20 09:22 Protonix Iv IVPUSH 40 mg DAILY CASANDRA Administration Polyethylene Glycol 17 gm 01/28/20 10:00 01/31/20 09:23 Miralax (For Daily Use) - PO 17 grams DAILY CASANDRA Administration Polyethylene Glycol/Electrolytes 4,000 ml 01/31/20 16:00 Golytely Solution - PO 01/31/20 16:01 ONCE ONE Silver Sulfadiazine 1 applic 01/30/20 15:00 01/31/20 09:25 Silvadene - TP 1 applic DAILY CASANDRA Administration CTAP- Diverticulosis, large prostate/heterogenous attenuation, L renal Calculus, Fat hernia, Renal Cysts. ASSESSMENT/PLAN: 69 YO M PMH asthma, HTN, HLD, BPH w/ indwelling baxter catheter, & Cerebral palsy (wheelchair bound) was sent in by PCP for severe anemia (CBC on 01/24/20). #Iron Deficiency Anemia -H/H 6.6/22.5 on admission. s/p 2 units PRBC -FOBT positive -LOW: Iron (10), Ferritin (3.6), Iron Sat (2%) - HIGH: Unsaturated IBC (392) NORMAL: TIBC (402) Folate 28 - Vitamin B 12: 258 borderline. Vitamin B12 ordered -s/p 200 mg venofer yesterday. One dose of 200 mg venofer today -will need oral Iron supplementation on d/c -ECHO: LV size/function, RA size nml. EF65%. LA midly dilated. mild mitral valve thickening & regurg. Mild aortic valve thickening. -cardio c/s appreciated. Pt at at acceptable CV risk for EGD/colonoscopy. Patient cleared by Pulm and Surgery. COVID testing will 01/31. -colonoscopy tomorrow #UTI ruled out -UA: protein 2+, blood 3+, 292 RBCs, nitrite positive, leukocyte esterase 3+, 647 WBCs, bacteria 6919, epithelial cells 7 -ucx negative. ri ceftriaxone -baxter changed every 6 weeks. s/p Baxter change 01/27. last UTI over 6 months ago -h/o intermittent hematuria. f/u outpt w/ urologist #Asthma -pulm c/s appreciated. Asthma is Mild/Intermittent -c/w symbicort and alubterol PRN -resume advair as outpt #L Decubitus ulcer on admission -Stage 2. -Wound care c/s appreciated. -Reposition Q2H in bed, Air mattress -Utilize Trendelenburg & drawsheets when repositioning to decrease shear/friction -timely cleansing to manage incontinence. -off-load bony regions w/ Allevyn/Optifoam -Clean wounds w/ NS. Apply Silvadene #Umbilical Hernia -reducible -CTAP: fat hernia -sgy cleared pt for EGD/colonoscopy #HTN -c/w Cardizem and Lisinopril #HLD: C/w atorvastatin 40 mg PO HS #BPH with indwelling baxter CTAP: large prostate/heterogenous attenuation, L renal Calculus, Renal Cysts. -urology f/u outpt at [facility]. Dr. Russell at [facility]. #DVT PPX SCDs no AC 2/2 severe anemia #FEN no IVF monitor lytes NPO for colonoscopy #DISPO maintian med surg Visit type - Emergency Visit Emergency Visit: Yes ED Registration Date: 01/27/20 Care time: The patient presented to the Emergency Department on the above date and was hospitalized for further evaluation of their emergent condition. - New Patient This patient is new to me today: No - Critical Care Critical Care patient: No - Medication Review Med list reviewed for High Risk Meds patients 65 and older: Yes ATTENDING PHYSICIAN STATEMENT I saw and evaluated the patient. I reviewed the resident's note and discussed the case with the resident. I agree with the resident's findings and plan as documented. SUBJECTIVE: OBJECTIVE: ASSESSMENT AND PLAN:
[2020-01-31] MEDS ORDERED: PEG 3350/NA SULF BICARB CL/KCL 4000 ML SOLN.RECON PO ONE (16:00)
[2020-01-31] MEDS ORDERED: IRON SUCROSE INJECTION 200 MG in SODIUM CHLORIDE 90 ML IVPB ONE (17:00)
--- NOTE | 2020-01-31 17:06 | PN ---
Teaching Attending Note Name of Resident: Bradly Rosales ATTENDING PHYSICIAN STATEMENT I saw and evaluated the patient. I reviewed the resident's note and discussed the case with the resident. I agree with the resident's findings and plan as documented. SUBJECTIVE: Seen and examined at bedside. Denies shortness of breath, cough, wheezing, chest pain. Patient cleared by cardiology for Colonoscopy/endoscopy OBJECTIVE: Last Vital Signs Temp Pulse Resp BP Pulse Ox 98 F 74 20 109/64 95 01/31/20 16:30 01/31/20 16:30 01/31/20 16:30 01/31/20 16:30 01/31/20 16:30 PE: Per resident note Labs/Imaging; reviewed ASSESSMENT AND PLAN: 69 year old male with history of Cerebral palsy (wheelchair bound), HTN, HLD, BPH (indwelling baxter catheter), Asthma, and sent in by PCP for severe anemia (labs done 01/24/20). He reports chronic constipation and bloody TP due to hemorrhoids. Also reports occasional hematuria for years. #Iron deficiency anemia FOBT positive Planned for colonoscopy/endoscopy tomorrow GI on board: Appreciate recommendations Status post 2 units PRBC, Venofer #History of asthma Symbicort as inpatient and Ventolin as needed Discharge on home medications #Hypertension Continue home meds #Hyperlipidemia Continue home meds #Chronic left decubitus ulcer, present on admission, stage II-III Not infected Silvadene dressings Wound care consulted #History of BPH with indwelling Baxter CT abdomen pelvis shows enlarged heterogenous prostate with left renal calculus and renal cysts Follow-up with urology as an outpatient #DVT prophylaxis: SCDs in the setting of iron deficiency anemia
[2020-01-31] MEDS: ATORVASTATIN CA 40 MG TABLET (FP) PO SCH (20:59)
[2020-01-31] MEDS: ACETAMINOPHEN 325 MG TABLET (FP) PO PRN (21:20)
[2020-02-01 07:46] LABS: EOS % 5.8 % (0-4.5); HEMATOCRIT 31.3 % (35.4-49); HEMOGLOBIN 9.5 GM/dL (11.7-16.9); LYMPH % 14.8 % (8-40); MCHC 30.5 g/dl (32.0-35.9); MEAN CELL VOLUME 65.6 fl (80-96); MEAN PLT VOLUME 6.8 fl (7.5-11.1); MONO % 10.9 % (3.8-10.2); NEUT % 66.5 % (42.8-82.8); PLATELET COUNT 550 K/MM3 (134-434); RBC 4.77 M/mm3 (4.00-5.60); RDW 26.8 % (11.9-15.9); WHITE BLOOD COUNT 9.4 K/mm3 (4.0-10.0)
[2020-02-01 08:28] LABS: BLOOD UREA NITROGEN 7.3 mg/dL (7-18); CALCIUM 8.7 mg/dL (8.5-10.1); CREATININE 0.9 mg/dL (0.55-1.3); MAGNESIUM 2.4 mg/dL (1.8-2.4); PHOSPHOROUS 4.1 mg/dL (2.5-4.9); POTASSIUM 3.6 mmol/L (3.5-5.1)
[2020-02-01 09:10] LABS: ANISOCYTOSIS 2+; MACROCYTOSIS 0; PLATELET ESTIMATE INCREASED; ROULEAU 1+
[2020-02-01] MEDS ORDERED: PT OWN MED DRAWER 7, Y5N ONE (11:02)
[2020-02-01] MEDS: PANTOPRAZOLE SODIUM 40 MG VIAL IVPUSH SCH (11:05)
[2020-02-01] MEDS: LISINOPRIL 20 MG TABLET (FP) PO SCH (11:05)
[2020-02-01] MEDS: POLYETHYLENE GLYCOL 3350 119 GM BTL PO SCH (11:05)
[2020-02-01] MEDS: MINERAL OIL/PET HY-PHL TOPICAL OINTMENT 454 GM JAR TP SCH (11:06)
[2020-02-01] MEDS: SILVER SULFADIAZINE 1% TOP CREAM 50 GM JAR TP SCH (11:06)
[2020-02-01] MEDS: CYANOCOBALAMIN 1,000 MCG TABLET (FP) PO SCH (11:07)
[2020-02-01] MEDS: BUDESONIDE/FORMETEROL FUMARATE 80/4.5 mcg INHALER IH SCH ×2 (11:07→21:24)
--- NOTE | 2020-02-01 12:07 | PN ---
Progress Note (short form) - Note Progress Note: Denies shortness of breath, cough or wheezing. No acute events overnight. Intake & Output 01/29/20 01/30/20 01/31/20 02/01/20 23:59 23:59 23:59 23:59 Intake Total 50 400 2400 Output Total 2700 3100 2950 200 Balance -2650 -2700 -550 -200 Last Vital Signs Temp Pulse Resp BP Pulse Ox 98.1 F 88 20 123/67 91 L 02/01/20 06:00 02/01/20 06:00 02/01/20 06:00 02/01/20 06:00 02/01/20 06:00 Active Medications Acetaminophen (Tylenol -) 650 mg PO Q6H PRN PRN Reason: Fever Or Pain Last Admin: 01/31/20 21:20 Dose: 650 mg Documented by: Albuterol Sulfate (Ventolin Hfa Inhaler -) 2 puff IH Q4H PRN PRN Reason: SHORT OF BREATH/WHEEZING Atorvastatin Calcium (Lipitor -) 40 mg PO HS [facility] Last Admin: 01/31/20 20:59 Dose: 40 mg Documented by: Budesonide/Formoterol Fumarate (Symbicort 80/4.5mcg -) 2 puff IH BID [facility] Last Admin: 02/01/20 11:07 Dose: 2 puff Documented by: Cyanocobalamin (Vitamin B12 -) 1,000 mcg PO DAILY [facility] Last Admin: 02/01/20 11:07 Dose: Not Given Documented by: Diltiazem HCl (Cardizem Cd -) 240 mg PO DAILY [facility] Last Admin: 02/01/20 11:05 Dose: 240 mg Documented by: Emollient Ointment (Aquaphor -) 1 applic TP DAILY [facility] Last Admin: 02/01/20 11:06 Dose: 1 applic Documented by: Lisinopril (Prinivil) 20 mg PO DAILY [facility] Last Admin: 02/01/20 11:05 Dose: 20 mg Documented by: Pantoprazole Sodium (Protonix Iv) 40 mg IVPUSH DAILY [facility] Last Admin: 02/01/20 11:05 Dose: 40 mg Documented by: Polyethylene Glycol (Miralax (For Daily Use) -) 17 gm PO DAILY [facility] Last Admin: 02/01/20 11:05 Dose: Not Given Documented by: Silver Sulfadiazine (Silvadene -) 1 applic TP DAILY [facility] Last Admin: 02/01/20 11:06 Dose: 1 applic Documented by: Gen: NAD at rest Heart: RRR Lung: decreased breath sounds at the bases Abd: soft, nontender Ext: no edema Laboratory Results - last 24 hr 02/01/20 02/01/20 02/01/20 07:00 07:00 07:00 WBC 9.4 RBC 4.77 Hgb 9.5 L Hct 31.3 L MCV 65.6 L MCH 20.0 L MCHC 30.5 L RDW 26.8 H Plt Count 550 H MPV 6.8 L Absolute Neuts (auto) 6.2 Neutrophils % 66.5 Lymphocytes % 14.8 Monocytes % 10.9 H Eosinophils % 5.8 H Basophils % 2.0 Nucleated RBC % 0 Hypochromia 2+ Platelet Estimate Increased Polychromasia 1+ Poikilocytosis 1+ Anisocytosis 2+ Microcytosis 2+ Macrocytosis 0 Rouleaux 1+ Sodium 141 Potassium 3.6 Chloride 108 H Carbon Dioxide 24 Anion Gap 8 BUN 7.3 Creatinine 0.9 Est GFR (CKD-EPI)AfAm 102.07 Est GFR (CKD-EPI)NonAf 88.07 Random Glucose 92 Calcium 8.7 Phosphorus 4.1 Magnesium 2.4 Blood Type O POSITIVE Antibody Screen Negative A/P Stable Mild Persistent Asthma Anemia r/o GI Bleed UTI HTN Hyperlipidemia BPH Cerebral Palsy - symbicort while inpatient (formulary) and resume advair as outpt - albuterol as needed - DVT prophylaxis - no pulmonary contraindications for planned endoscopy Dr Lai
--- NOTE | 2020-02-01 12:20 | PN ---
Progress Note (short form) - Note Progress Note: cc: anemia s: no chest pain, palps, dizziness, dyspnea Current Medications Generic Name Dose Route Start Last Admin Trade Name Freq PRN Reason Stop Dose Admin Acetaminophen 650 mg 01/31/20 21:03 01/31/20 21:20 Tylenol - PO 650 mg Q6H PRN Administration Fever Or Pain Albuterol Sulfate 2 puff 01/28/20 11:47 Ventolin Hfa Inhaler - IH Q4H PRN SHORT OF BREATH/WHEEZING Atorvastatin Calcium 40 mg 01/28/20 22:00 01/31/20 20:59 Lipitor - PO 40 mg HS [facility]AN[facility]A Administration Budesonide/Formoterol Fumarate 2 puff 01/28/20 12:00 02/01/20 11:07 Symbicort 80/4.5mcg - IH 2 puff BID [facility]ANDRA Administration Cyanocobalamin 1,000 mcg 01/29/20 16:00 02/01/20 11:07 Vitamin B12 - PO Not Given DAILY [facility]AN[facility] Diltiazem HCl 240 mg 01/28/20 15:00 02/01/20 11:05 Cardizem Cd - PO 240 mg DAILY [facility] Administration Emollient Ointment 1 applic 01/29/20 10:00 02/01/20 11:06 Aquaphor - TP 1 applic DAILY [facility] Administration Lisinopril 20 mg 01/28/20 15:00 02/01/20 11:05 Prinivil PO 20 mg DAILY [facility] Administration Pantoprazole Sodium 40 mg 01/28/20 10:00 02/01/20 11:05 Protonix Iv IVPUSH 40 mg DAILY [facility] Administration Polyethylene Glycol 17 gm 01/28/20 10:00 02/01/20 11:05 Miralax (For Daily Use) - PO Not Given DAILY [facility] Silver Sulfadiazine 1 applic 01/30/20 15:00 02/01/20 11:06 Silvadene - TP 1 applic DAILY [facility] Administration Vital Signs Period Temp Pulse Resp BP Sys/Encinas Pulse Ox Last 24 Hr 97.3 F-98.1 F 74-88 18-20 109-133/64-70 91-96 Constitutional: Yes: No Distress, Calm Eyes: Yes: Conjunctiva Clear Neck: Yes: Supple, Trachea Midline Cardiovascular: Yes: Regular Rate and Rhythm Respiratory: Yes: CTA Bilaterally (no rales or wheezing) Gastrointestinal: Yes: Soft (nt) Edema: No Neurological: Yes: Alert, Oriented no jaundice diaphoresis not agitated Assessment/Plan ECG: NSR, unremarkable echo 01/2020 tds, nl LV/RV function, LA mildly dialted, mild MR, mild TR, impaired LV relaxation severe iron deficiency anemia, preop CV eval: -recent report of "elevated heart enzymes" at [place], with cardio followup at that time. reviewed records sent from [place], Dr Parker psychological examiner from 01/16, notes patient had mildly elevated troponin in setting of asthma exacerbation in November, likely demand. no chest pain or EKG changes at the time. Had echo scheduled with plan for stress test if any wma seen - echo done here - unremarkable, patient remains asymptomatic - he is at acceptable risk for EGD/colonoscopy, no further cardiac testing at this point HTN: -controlled on Diltiazem HPL: -outpt f/u asthma: -per primary team
--- NOTE | 2020-02-01 16:15 | PN ---
Teaching Attending Note Name of Resident: Bradly Rosales ATTENDING PHYSICIAN STATEMENT I saw and evaluated the patient. I reviewed the resident's note and discussed the case with the resident. I agree with the resident's findings and plan as documented. SUBJECTIVE: Seen and examined at bedside. Underwent csope today finding two polyps but no obvious source of bleeding. OBJECTIVE: Last Vital Signs Temp Pulse Resp BP Pulse Ox 97.8 F 83 22 H 118/70 97 02/01/20 15:01 02/01/20 15:29 02/01/20 15:29 02/01/20 15:29 02/01/20 15:29 PE: Per resident note Labs/Imaging; reviewed ASSESSMENT AND PLAN: 69 year old male with history of Cerebral palsy (wheelchair bound), HTN, HLD, BPH (indwelling baxter catheter), Asthma, and sent in by PCP for severe anemia (labs done 01/24/20). He reports chronic constipation and bloody TP due to hemorrhoids. Also reports occasional hematuria for years. #Iron deficiency anemia FOBT positive Colonoscopy showed 2 polyps but no obvious source of bleeding Repeat colonoscopy in 3 to 6 months due to inadequate visualization of cecum Capsule endoscopy for further evaluation of anemia Status post 2 units PRBC, Venofer #History of asthma Symbicort as inpatient and Ventolin as needed Discharge on home medications #Hypertension Continue home meds #Hyperlipidemia Continue home meds #Chronic left decubitus ulcer, present on admission, stage II-III Not infected Silvadene dressings Wound care consulted #History of BPH with indwelling Baxter CT abdomen pelvis shows enlarged heterogenous prostate with left renal calculus and renal cysts Follow-up with urology as an outpatient #DVT prophylaxis: SCDs in the setting of iron deficiency anemia
--- NOTE | 2020-02-01 18:13 | PN ---
Physical Exam: SUBJECTIVE: No overnight events. Patient seen and examined. Pt tearful. Wants to go home as soon as possible. OBJECTIVE: Vital Signs Period Temp Pulse Resp BP Sys/Encinas Pulse Ox Last 24 Hr 97.8 F-98.1 F 80-90 18-22 112-140/63-85 91-97 GENERAL: The patient is awake, alert, and fully oriented, in no acute distress. HEENT: Normal with no signs of trauma. No ptosis. moist mucous membranes. LUNGS: Breath sounds equal, clear to auscultation bilaterally, no wheezes, no crackles, no accessory muscle use. HEART: Regular rate and rhythm, S1, S2 without murmur, rub or gallop. ABDOMEN: Soft, nontender, nondistended, hypoactive bowel sounds, umbilical hernia EXTREMITIES: 2+ pulses, warm, well-perfused, no edema. contracture in Lower extremity. stage 2 decubitus ulcer on L buttock. no edema. more erythematous likely 2/2 irritation from bowel prep for colonoscopy NEUROLOGICAL: Normal speech, gait not observed. PSYCH: Normal mood, normal affect. Laboratory Results - last 24 hr 02/01/20 02/01/20 02/01/20 07:00 07:00 07:00 WBC 9.4 RBC 4.77 Hgb 9.5 L Hct 31.3 L MCV 65.6 L MCH 20.0 L MCHC 30.5 L RDW 26.8 H Plt Count 550 H MPV 6.8 L Absolute Neuts (auto) 6.2 Neutrophils % 66.5 Lymphocytes % 14.8 Monocytes % 10.9 H Eosinophils % 5.8 H Basophils % 2.0 Nucleated RBC % 0 Hypochromia 2+ Platelet Estimate Increased Polychromasia 1+ Poikilocytosis 1+ Anisocytosis 2+ Microcytosis 2+ Macrocytosis 0 Rouleaux 1+ Sodium 141 Potassium 3.6 Chloride 108 H Carbon Dioxide 24 Anion Gap 8 BUN 7.3 Creatinine 0.9 Est GFR (CKD-EPI)AfAm 102.07 Est GFR (CKD-EPI)NonAf 88.07 Random Glucose 92 Calcium 8.7 Phosphorus 4.1 Magnesium 2.4 Blood Type O POSITIVE Antibody Screen Negative Active Medications Generic Name Dose Route Start Last Admin Trade Name Freq PRN Reason Stop Dose Admin Acetaminophen 650 mg 01/31/20 21:03 01/31/20 21:20 Tylenol - PO 650 mg Q6H PRN Administration Fever Or Pain Albuterol Sulfate 2 puff 01/28/20 11:47 Ventolin Hfa Inhaler - IH Q4H PRN SHORT OF BREATH/WHEEZING Atorvastatin Calcium 40 mg 01/28/20 22:00 01/31/20 20:59 Lipitor - PO 40 mg HS CASANDRA Administration Budesonide/Formoterol Fumarate 2 puff 01/28/20 12:00 02/01/20 11:07 Symbicort 80/4.5mcg - IH 2 puff BID CASANDRA Administration Cyanocobalamin 1,000 mcg 01/29/20 16:00 02/01/20 11:07 Vitamin B12 - PO Not Given DAILY CASANDRA Diltiazem HCl 240 mg 01/28/20 15:00 02/01/20 11:05 Cardizem Cd - PO 240 mg DAILY CASANDRA Administration Emollient Ointment 1 applic 01/29/20 10:00 02/01/20 11:06 Aquaphor - TP 1 applic DAILY CASANDRA Administration Lisinopril 20 mg 01/28/20 15:00 02/01/20 11:05 Prinivil PO 20 mg DAILY CASANDRA Administration Pantoprazole Sodium 40 mg 01/28/20 10:00 02/01/20 11:05 Protonix Iv IVPUSH 40 mg DAILY CASANDRA Administration Polyethylene Glycol 17 gm 01/28/20 10:00 02/01/20 11:05 Miralax (For Daily Use) - PO Not Given DAILY CASANDRA Silver Sulfadiazine 1 applic 01/30/20 15:00 02/01/20 11:06 Silvadene - TP 1 applic DAILY CASANDRA Administration CTAP- Diverticulosis, large prostate/heterogenous attenuation, L renal Calculus, Fat hernia, Renal Cysts. ASSESSMENT/PLAN: 69 YO M PMH asthma, HTN, HLD, BPH w/ indwelling baxter catheter, & Cerebral palsy (wheelchair bound) was sent in by PCP for severe anemia (CBC on 01/24/20). #Iron Deficiency Anemia -H/H 6.6/22.5 on admission. s/p 2 units PRBC -FOBT positive -LOW: Iron (10), Ferritin (3.6), Iron Sat (2%) - HIGH: Unsaturated IBC (392) NORMAL: TIBC (402) Folate 28 - Vitamin B 12: 258 borderline. Vitamin B12 ordered -s/p 200 mg venofer 2/3 -will need oral Iron supplementation on d/c -ECHO: LV size/function, RA size nml. EF65%. LA midly dilated. mild mitral valve thickening & regurg. Mild aortic valve thickening. -Colonoscopy: -Rectum: internal hemorrhoids grade 2//Sigmoid, descending colon: small scattered diverticulae//Transverse colon: one sessile 4 mm polyp removed using forceps. Another 15 mm polyp removed using hot snare polypectomy // Ascending colon: few diverticulae. Repeat colonoscopy with 2 day prep in 3-6 months inadequate visualization of cecum Capsule study to further evaluate his anemia #UTI ruled out -UA: protein 2+, blood 3+, 292 RBCs, nitrite positive, leukocyte esterase 3+, 647 WBCs, bacteria 6919, epithelial cells 7 -ucx negative. nc ceftriaxone -baxter changed every 6 weeks. s/p Baxter change 01/27. last UTI over 6 months ago -h/o intermittent hematuria. f/u outpt w/ urologist #Asthma -pulm c/s appreciated. Asthma is Mild/Intermittent -c/w symbicort and alubterol PRN -resume advair as outpt #L Decubitus ulcer on admission -Stage 2. -Wound care c/s appreciated. -Reposition Q2H in bed, Air mattress -Utilize Trendelenburg & drawsheets when repositioning to decrease shear/friction -timely cleansing to manage incontinence. -off-load bony regions w/ Allevyn/Optifoam -Clean wounds w/ NS. Apply Silvadene #Umbilical Hernia -reducible -CTAP: fat hernia #HTN -c/w Cardizem and Lisinopril #HLD: C/w atorvastatin 40 mg PO HS #BPH with indwelling baxter CTAP: large prostate/heterogenous attenuation, L renal Calculus, Renal Cysts. -urology f/u outpt [facility] Dr. Russell at [facility]. #DVT PPX SCDs no AC 2/2 severe anemia #FEN no IVF monitor lytes NPO for colonoscopy #DISPO maintian med surg Visit type - Emergency Visit Emergency Visit: Yes ED Registration Date: 01/27/20 Care time: The patient presented to the Emergency Department on the above date and was hospitalized for further evaluation of their emergent condition. - New Patient This patient is new to me today: No - Critical Care Critical Care patient: No - Medication Review Med list reviewed for High Risk Meds patients 65 and older: Yes ATTENDING PHYSICIAN STATEMENT I saw and evaluated the patient. I reviewed the resident's note and discussed the case with the resident. I agree with the resident's findings and plan as documented. SUBJECTIVE: OBJECTIVE: ASSESSMENT AND PLAN:
[2020-02-01] MEDS: ATORVASTATIN CA 40 MG TABLET (FP) PO SCH (21:24)
[2020-02-01] MEDS ORDERED: ONDANSETRON 4 MG/2 ML VIAL IVPUSH ONE (22:33)
[2020-02-02 08:23] LABS: BASO % 1.3 % (0-2.0); HEMATOCRIT 28.6 % (35.4-49); HEMOGLOBIN 8.6 GM/dL (11.7-16.9); MCHC 29.9 g/dl (32.0-35.9); MEAN CELL VOLUME 66.2 fl (80-96); MONO % 7.5 % (3.8-10.2); NEUT % 82.2 % (42.8-82.8); PLATELET COUNT 511 K/MM3 (134-434); RBC 4.31 M/mm3 (4.00-5.60); RDW 26.9 % (11.9-15.9); WHITE BLOOD COUNT 11.5 K/mm3 (4.0-10.0)
[2020-02-02 08:29] LABS: MCH 19.8 pg (25.7-33.7)
[2020-02-02 08:45] LABS: ALBUMIN 3.2 g/dl (3.4-5.0); BLOOD UREA NITROGEN 12.2 mg/dL (7-18); CALCIUM 8.8 mg/dL (8.5-10.1); CREATININE 1.1 mg/dL (0.55-1.3); MAGNESIUM 2.3 mg/dL (1.8-2.4); POTASSIUM 3.4 mmol/L (3.5-5.1)
[2020-02-02 08:47] LABS: BILIRUBIN,TOTAL 0.4 mg/dL (0.2-1); PHOSPHOROUS 4.7 mg/dL (2.5-4.9); TOT PROT 6.1 g/dl (6.4-8.2)
[2020-02-02] MEDS: MINERAL OIL/PET HY-PHL TOPICAL OINTMENT 454 GM JAR TP SCH (10:45)
[2020-02-02] MEDS: PANTOPRAZOLE SODIUM 40 MG VIAL IVPUSH SCH (10:46)
[2020-02-02] MEDS: SILVER SULFADIAZINE 1% TOP CREAM 50 GM JAR TP SCH (10:46)
[2020-02-02] MEDS: BUDESONIDE/FORMETEROL FUMARATE 80/4.5 mcg INHALER IH SCH ×2 (10:46→21:28)
[2020-02-02] MEDS: LISINOPRIL 20 MG TABLET (FP) PO SCH (10:47)
[2020-02-02] MEDS: CYANOCOBALAMIN 1,000 MCG TABLET (FP) PO SCH (10:47)
[2020-02-02] MEDS: POLYETHYLENE GLYCOL 3350 119 GM BTL PO SCH (10:47)
--- NOTE | 2020-02-02 10:54 | PN ---
Progress Note (short form) - Note Progress Note: Chief Complaint: no cp/sob/palps/dizzy, feels well History of Present Illness: 69 yo male here with bleeding, anemia has had bleeding from buttock decubitus. ? if rectal bleed as well. no prior GI scopes--currently being considered here. due to report of elevated cardiac enzymes at [facility] recently, in setting of asthma exacerbation, we were asked to evaluate his cardiac risk for procedures. says he was told at [facility] that the asthma "put a strain on my heart". never had cp then or presently. or at home--though is not ambulatory. no sob since back home no palp, syncope sees dr parker for cardiology PMH: HTN HPL BPH, indwelling baxter UTIs - Current Medication List Current Medications: Active Medications Current Medications Generic Name Dose Route Start Last Admin Trade Name Freq PRN Reason Stop Dose Admin Acetaminophen 650 mg 01/31/20 21:03 01/31/20 21:20 Tylenol - PO 650 mg Q6H PRN Administration Fever Or Pain Albuterol Sulfate 2 puff 01/28/20 11:47 Ventolin Hfa Inhaler - IH Q4H PRN SHORT OF BREATH/WHEEZING Atorvastatin Calcium 40 mg 01/28/20 22:00 02/01/20 21:24 Lipitor - PO 40 mg HS CASANDRA Administration Budesonide/Formoterol Fumarate 2 puff 01/28/20 12:00 02/02/20 10:46 Symbicort 80/4.5mcg - IH 2 puff BID CASANDRA Administration Cyanocobalamin 1,000 mcg 01/29/20 16:00 02/02/20 10:47 Vitamin B12 - PO 1,000 mcg DAILY CASANDRA Administration Diltiazem HCl 240 mg 01/28/20 15:00 02/02/20 10:47 Cardizem Cd - PO 240 mg DAILY CASANDRA Administration Emollient Ointment 1 applic 01/29/20 10:00 02/02/20 10:45 Aquaphor - TP 1 applic DAILY CASANDRA Administration Lisinopril 20 mg 01/28/20 15:00 02/02/20 10:47 Prinivil PO 20 mg DAILY CASANDRA Administration Pantoprazole Sodium 40 mg 01/28/20 10:00 02/02/20 10:46 Protonix Iv IVPUSH 40 mg DAILY CASANDRA Administration Polyethylene Glycol 17 gm 01/28/20 10:00 02/02/20 10:47 Miralax (For Daily Use) - PO Not Given DAILY CASANDRA Silver Sulfadiazine 1 applic 01/30/20 15:00 02/02/20 10:46 Silvadene - TP 1 applic DAILY CASANDRA Administration - Objective Vital Signs: Vital Signs Period Temp Pulse Resp BP Sys/Encinas Pulse Ox Last 24 Hr 97.4 F-98.2 F 77-92 18-22 112-157/53-91 91-98 Constitutional: Yes: No Distress, Calm Eyes: Yes: Conjunctiva Clear Neck: Yes: Supple, Trachea Midline Cardiovascular: Yes: Regular Rate and Rhythm Respiratory: Yes: CTA Bilaterally (no rales or wheezing) Gastrointestinal: Yes: Soft (nt) Edema: No Neurological: Yes: Alert, Oriented no jaundice diaphoresis Labs: CBC, BMP 02/02/20 07:00 02/02/20 07:00 Assessment/Plan ECG: NSR, unremarkable echo 01/2020 tds, nl LV/RV function, LA mildly dialted, mild MR, mild TR, impa ired LV relaxation severe iron deficiency anemia, preop CV eval: -recent report of "elevated heart enzymes" at [facility], with cardio followup at that time. reviewed records sent from [facility], Dr Parker roller inspector from 01/16, notes patient had mildly elevated troponin in setting of asthma exacerbation in November, likely demand. no chest pain or EKG changes at the time. Had echo scheduled with plan for stress test if any wma seen - echo done here - unremarkable, patient remains asymptomatic - he is at acceptable risk for EGD/colonoscopy, no further cardiac testing at this point. s/p unremarkable foc here. HTN: -controlled on Diltiazem HPL: -outpt f/u asthma: -per primary team
--- NOTE | 2020-02-02 11:31 | PN ---
Progress Note (short form) - Note Progress Note: Denies shortness of breath, cough or wheezing. No acute events overnight. Endoscopy results noted. Intake & Output 01/30/20 01/31/20 02/01/20 02/02/20 23:59 23:59 23:59 23:59 Intake Total 400 2400 520 Output Total 3100 2950 530 200 Balance -2700 -550 -10 -200 Last Vital Signs Temp Pulse Resp BP Pulse Ox 98.2 F 77 18 136/70 98 02/02/20 10:23 02/02/20 10:23 02/02/20 10:23 02/02/20 10:23 02/02/20 10:23 Active Medications Acetaminophen (Tylenol -) 650 mg PO Q6H PRN PRN Reason: Fever Or Pain Last Admin: 01/31/20 21:20 Dose: 650 mg Documented by: Albuterol Sulfate (Ventolin Hfa Inhaler -) 2 puff IH Q4H PRN PRN Reason: SHORT OF BREATH/WHEEZING Atorvastatin Calcium (Lipitor -) 40 mg PO HS [facility] Last Admin: 02/01/20 21:24 Dose: 40 mg Documented by: Budesonide/Formoterol Fumarate (Symbicort 80/4.5mcg -) 2 puff IH BID [facility] Last Admin: 02/02/20 10:46 Dose: 2 puff Documented by: Cyanocobalamin (Vitamin B12 -) 1,000 mcg PO DAILY [facility] Last Admin: 02/02/20 10:47 Dose: 1,000 mcg Documented by: Diltiazem HCl (Cardizem Cd -) 240 mg PO DAILY [facility] Last Admin: 02/02/20 10:47 Dose: 240 mg Documented by: Emollient Ointment (Aquaphor -) 1 applic TP DAILY [facility] Last Admin: 02/02/20 10:45 Dose: 1 applic Documented by: Lisinopril (Prinivil) 20 mg PO DAILY [facility] Last Admin: 02/02/20 10:47 Dose: 20 mg Documented by: Pantoprazole Sodium (Protonix Iv) 40 mg IVPUSH DAILY [facility] Last Admin: 02/02/20 10:46 Dose: 40 mg Documented by: Polyethylene Glycol (Miralax (For Daily Use) -) 17 gm PO DAILY [facility] Last Admin: 02/02/20 10:47 Dose: Not Given Documented by: Silver Sulfadiazine (Silvadene -) 1 applic TP DAILY CASANDRA Last Admin: 02/02/20 10:46 Dose: 1 applic Documented by: Gen: NAD at rest Heart: RRR Lung: decreased breath sounds at the bases Abd: soft, nontender Ext: no edema A/P Stable Mild Persistent Asthma Anemia r/o GI Bleed UTI HTN Hyperlipidemia BPH Cerebral Palsy - symbicort while inpatient (formulary) and resume advair as outpt - albuterol as needed - DVT prophylaxis - DC planning Dr Lai
--- NOTE | 2020-02-02 11:44 | PN ---
Progress Note (short form) - Note Progress Note: Procedure reports from yesterday reviewed (EGD report will be scanned in today). Will need repeat colonoscopy in 3-6 months to better visualize the cecum IV iron Hematology evaluation Outpatient follow-up Problem List - Problems (1) Iron deficiency anemia Code(s): D50.9 - IRON DEFICIENCY ANEMIA, UNSPECIFIED
--- NOTE | 2020-02-02 17:12 | PN ---
Teaching Attending Note Name of Resident: Bradly Rosales ATTENDING PHYSICIAN STATEMENT I saw and evaluated the patient. I reviewed the resident's note and discussed the case with the resident. I agree with the resident's findings and plan as documented. SUBJECTIVE: Seen and examined at bedside. Patient is medically cleared for discharge OBJECTIVE: Last Vital Signs Temp Pulse Resp BP Pulse Ox 97.9 F 73 20 131/76 91 L 02/02/20 16:20 02/02/20 16:20 02/02/20 16:20 02/02/20 16:20 02/02/20 16:20 PE: Per resident note Labs/Imaging; reviewed ASSESSMENT AND PLAN: 69 year old male with history of Cerebral palsy (wheelchair bound), HTN, HLD, BPH (indwelling baxter catheter), Asthma, and sent in by PCP for severe anemia (labs done 01/24/20). He reports chronic constipation and bloody TP due to hemorrhoids. Also reports occasional hematuria for years. Patient was found to have iron deficiency anemia. Colonoscopy showed 2 polyps but no obvious source of bleeding. Patient will require repeat colonoscopy in 3 to 6 months due to inadequate visualization of the cecum, as well as a capsule endoscopy for further evaluation of anemia. He received 2 units of blood as well as Venofer as an inpatient.
--- NOTE | 2020-02-02 19:17 | DS ---
Physical Exam: SUBJECTIVE: No overnight events. Patient seen and examined. Endorses feeling better. OBJECTIVE: Vital Signs Period Temp Pulse Resp BP Sys/Encinas Pulse Ox Last 24 Hr 97.4 F-98.2 F 73-92 18-20 127-157/70-91 91-98 PHYSICAL EXAM GENERAL: The patient is awake, alert, and fully oriented, in no acute distress. HEENT: Normal with no signs of trauma. No ptosis. moist mucous membranes. LUNGS: Breath sounds equal, clear to auscultation bilaterally, no wheezes, no crackles, no accessory muscle use. HEART: Regular rate and rhythm, S1, S2 without murmur, rub or gallop. ABDOMEN: Soft, nontender, nondistended, hypoactive bowel sounds, umbilical hernia EXTREMITIES: 2+ pulses, warm, well-perfused, no edema. contracture in Lower extremity. stage 2 decubitus ulcer on L buttock. no edema. NEUROLOGICAL: Normal speech, gait not observed. PSYCH: Normal mood, normal affect. LABS Laboratory Results - last 24 hr 02/02/20 02/02/20 07:00 07:00 WBC 11.5 H RBC 4.31 Hgb 8.6 L Hct 28.6 L MCV 66.2 L MCH 19.8 L MCHC 29.9 L RDW 26.9 H Plt Count 511 H MPV 7.0 L Absolute Neuts (auto) 9.4 H Neutrophils % 82.2 D Lymphocytes % 8.0 D Monocytes % 7.5 Eosinophils % 1.0 D Basophils % 1.3 Nucleated RBC % 0 Sodium 144 Potassium 3.4 L Chloride 108 H Carbon Dioxide 24 Anion Gap 12 BUN 12.2 Creatinine 1.1 Est GFR (CKD-EPI)AfAm 80.08 Est GFR (CKD-EPI)NonAf 69.10 Random Glucose 113 H Calcium 8.8 Phosphorus 4.7 Magnesium 2.3 Total Bilirubin 0.4 AST 20 ALT 17 Alkaline Phosphatase 131 H Total Protein 6.1 L Albumin 3.2 L HOSPITAL COURSE: 69 YO M PMH asthma, HTN, HLD, BPH w/ indwelling baxter catheter, & Cerebral palsy (wheelchair bound) was sent in by PCP for severe anemia (Hemglobin/Hct 6.6/22.5 on admission). He received 2 units of PRBC. FOBT was positive, and iron studies showed LOW: Iron (10), Ferritin (3.6), Iron Sat (2%)// HIGH: Unsaturated IBC (392)//NORMAL: TIBC (402) Folate 28, Vitamin B 12: 258 borderline. He was given venofer for his iron deficient anemia. Colonoscopy showed Rectum: internal hemorrhoids grade 2//Sigmoid, descending colon: small scattered diverticulae//Transverse colon: one sessile 4 mm polyp removed using forceps. Another 15 mm polyp removed using hot snare polypectomy // Ascending colon: few diverticulae. Pt was advised to get repeat colonoscopy. ECHO showed LV size/function, RA size nml. EF65%. LA midly dilated. mild mitral valve thickening & regurg. Mild aortic valve thickening. The patient UA showed protein 2+, blood 3+, 292 RBCs, nitrite positive, leukocyte esterase 3+, 647 WBCs, bacteria 6919, epithelial cells 7. Pt was started on ceftriaxone. Urine culture later was negative, so antibiotics were stopped. Pt is stable for discharge. Date of Admission:01/27/20 Date of Discharge: 02/02/20 Minutes to complete discharge: 43 Discharge Summary Problems reviewed: Yes Reason For Visit: URINARY TRACT INFECTION Current Active Problems Anemia (Acute) Iron deficiency anemia (Acute) UTI (urinary tract infection) (Acute) Condition: Stable - Instructions Diet, Activity, Other Instructions: You were evaluated in the hospital due to concerning labwork from your Primary Care Physician which showed a low hemoglobin. Low hemoglobin is suggestive of a gastrointestinal bleeding issue. You received a transfusion of 2 units of blood and were given intravenous iron. Prior to getting a colonoscopy, you were evaluated by a shear scrapman, telephone plant power operator, and surgeon to ensure that you would not be high-risk for the colonoscopy. The colonoscopy was performed. However, there was inadequate visualization of the cecum. Please follow-up with your sintering plant supervisor for repeat colonoscopy in 3-6 months and for a capsule study to further evaluate your low hemoglobin level. Analysis of your urine showed bacteria, so you were given antibiotics. However, culture of your urine did not grow bacteria. Urinary tract infection was RULED OUT. Imaging of your abdomen showed an enlarged nonuniform prostate, a stone in your Left kidney, and a cyst in your Right kidney. Please follow-up with a urologist for follow-up. Also, follow-up with the urologist also regarding your history of chronic blood in your urine. Imaging of your abdomen showed that your hernia is composed of fat. Please follow-up with a general surgeon in outpatient for evaluation to discuss hernia repair. MEDICATIONS Please apply aquaphor and silvadene to your sacral ulcer. Please START taking iron supplements (ferrous sulfate) 325 mg twice a day. Please START taking polyethylene glycol (Miralax) 17 grams once a day. Please continue taking your other home medications as prescribed. FOLLOW-UP Please follow-up with sintering plant supervisor, Dr. Holley, for repeat colonoscopy in 3-6 months and for a capsule study. Please follow-up with your primary care physician, Dr. Pedersen, for repeat Complete Blood Count to re-evaluate your hemoglobin levels and to discuss your recent hospitalization and general health maintenance. Please follow-up with your urologist, Dr. Kumar, regarding your enlarged prostate with nodules and regarding your history of chronic blood in your urine. Please follow-up with surgeon Dr. Butler, for evaluation of your hernia repair. Please continue with a low sodium/fat/cholesterol diet. ADDITIONAL INFORMATION Please call 911 or come directly to the emergency department if you experience chest pain, shortness of breath, unusual bleeding, unusual headache, vision change, difficulty speaking, numbness, tingling, loss of alertness/awareness, loss of function, or any alarming symptoms Referrals: Ghassan Kumar MD [Other] (enlarged prostate with nodularity. stone in Left kidney, and a cyst in Right kidney. History of chronic blood in your urine. ) Adriana Pedersen [Primary Care Provider] - (repeat Complete Blood Count to re- evaluate hemoglobin levels ) Iliana Holley DO [Staff Physician] - (inadequate visualization of the cecum. repeat colonoscopy in 3-6 months and capsule study ) Josias Butler MD [Staff Physician] - (fat hernia) Disposition: HOME - Home Medications Comprehensive Discharge Medication List: Ambulatory Orders Albuterol Sulfate Inhaler - [Ventolin HFA Inhaler -] 2 puff IH Q6H PRN 01/28/20 Aspirin [ASA -] 81 mg PO DAILY 01/28/20 Atorvastatin Ca [Lipitor] 40 mg PO HS 01/28/20 Diltiazem HCl [Diltiazem 24Hr ER (Xr)] 240 mg PO DAILY 01/28/20 Lisinopril 20 mg PO DAILY 01/28/20 Montelukast Na [Singulair -] 10 mg PO DAILY 01/28/20 Salmeterol/Fluticasone [Advair 100Mcg/50Mcg -] 1 inh PO BID 01/28/20 Ferrous Sulfate [Iron] 325 mg PO BID 30 Days #60 tablet 02/02/20 Mineral Oil/Pet Hy-Phl [Aquaphor -] 1 applic TP DAILY #1 jar 02/02/20 Polyethylene Glycol 3350 [Miralax 119 gm Btl -] 17 gm PO DAILY 30 Days #30 bottle 02/02/20 Silver Sulfadiazine 1% Top Cr [Silvadene -] 1 applic TP DAILY #1 jar 02/02/20 This patient is new to me today: No Emergency Visit: Yes ED Registration Date: 01/27/20 Care time: The patient presented to the Emergency Department on the above date and was hospitalized for further evaluation of their emergent condition. Critical Care patient: No - Discharge Referral Referred to [facility] Med [facility] No ATTENDING PHYSICIAN STATEMENT I saw and evaluated the patient. I reviewed the resident's note and discussed the case with the resident. I agree with the resident's findings and plan as documented. SUBJECTIVE: OBJECTIVE: ASSESSMENT AND PLAN:
[2020-02-02] MEDS: ATORVASTATIN CA 40 MG TABLET (FP) PO SCH (21:28)
[2020-02-02] MEDS ORDERED: NYSTATIN POWDER 100,000 UNITS/GM - 15 GM TOPICAL POWDER TP ONE (21:57)
[2020-02-03] MEDS: ACETAMINOPHEN 325 MG TABLET (FP) PO PRN (02:57)
[2020-02-03 09:14] VITALS: BP 149/64; PULSE 73; TEMP 97.5
[2020-02-03] MEDS ORDERED: PT OWN MED DRAWER 7, Y5N ONE (09:33)
[2020-02-03] MEDS: CYANOCOBALAMIN 1,000 MCG TABLET (FP) PO SCH (09:36)
[2020-02-03] MEDS: SILVER SULFADIAZINE 1% TOP CREAM 50 GM JAR TP SCH (09:36)
[2020-02-03] MEDS: POLYETHYLENE GLYCOL 3350 119 GM BTL PO SCH (09:36)
[2020-02-03] MEDS: PANTOPRAZOLE SODIUM 40 MG VIAL IVPUSH SCH ×2 (09:36→11:45)
[2020-02-03] MEDS: LISINOPRIL 20 MG TABLET (FP) PO SCH (09:36)
[2020-02-03] MEDS: MINERAL OIL/PET HY-PHL TOPICAL OINTMENT 454 GM JAR TP SCH (09:36)
[2020-02-03] MEDS: BUDESONIDE/FORMETEROL FUMARATE 80/4.5 mcg INHALER IH SCH (09:37)
--- NOTE | 2020-02-03 12:06 | PN ---
Progress Note, Physician Chief Complaint: no cp/sob/palps - Current Medication List Current Medications: Active Medications Acetaminophen (Tylenol -) 650 mg PO Q6H PRN PRN Reason: Fever Or Pain Last Admin: 02/03/20 02:57 Dose: 650 mg Documented by: Albuterol Sulfate (Ventolin Hfa Inhaler -) 2 puff IH Q4H PRN PRN Reason: SHORT OF BREATH/WHEEZING Atorvastatin Calcium (Lipitor -) 40 mg PO HS [facility] Last Admin: 02/02/20 21:28 Dose: 40 mg Documented by: Budesonide/Formoterol Fumarate (Symbicort 80/4.5mcg -) 2 puff IH BID [facility] Last Admin: 02/03/20 09:37 Dose: 2 puff Documented by: Cyanocobalamin (Vitamin B12 -) 1,000 mcg PO DAILY [facility] Last Admin: 02/03/20 09:36 Dose: 1,000 mcg Documented by: Diltiazem HCl (Cardizem Cd -) 240 mg PO DAILY [facility] Last Admin: 02/03/20 09:36 Dose: 240 mg Documented by: Emollient Ointment (Aquaphor -) 1 applic TP DAILY [facility] Last Admin: 02/03/20 09:36 Dose: 1 applic Documented by: Lisinopril (Prinivil) 20 mg PO DAILY [facility] Last Admin: 02/03/20 09:36 Dose: 20 mg Documented by: Pantoprazole Sodium (Protonix Iv) 40 mg IVPUSH DAILY [facility] Last Admin: 02/03/20 11:45 Dose: Not Given Documented by: Polyethylene Glycol (Miralax (For Daily Use) -) 17 gm PO DAILY [facility] Last Admin: 02/03/20 09:36 Dose: 17 grams Documented by: Silver Sulfadiazine (Silvadene -) 1 applic TP DAILY [facility] Last Admin: 02/03/20 09:36 Dose: 1 applic Documented by: - Objective Vital Signs: Vital Signs Temperature 97.5 F L 02/03/20 09:14 Pulse Rate 73 02/03/20 09:14 Respiratory Rate 18 02/03/20 09:14 Blood Pressure 149/64 02/03/20 09:14 O2 Sat by Pulse Oximetry (%) 94 L 02/03/20 06:00 Constitutional: Yes: No Distress, Calm Eyes: Yes: Conjunctiva Clear Cardiovascular: Yes: Regular Rate and Rhythm Respiratory: Yes: CTA Bilaterally Gastrointestinal: Yes: Soft (nt) Edema: No (venodynes) Neurological: Yes: Alert, Oriented Labs: CBC, BMP 02/02/20 07:00 02/02/20 07:00 INR, PTT INR 1.12 (0.83-1.09) H 01/27/20 18:11 Laboratory Tests 02/02/20 02/02/20 07:00 07:00 WBC 11.5 H Hgb 8.6 L Plt Count 511 H Sodium 144 Potassium 3.4 L Creatinine 1.1 Est GFR (CKD-EPI)AfAm 80.08 Assessment/Plan Assessment/Plan ECG: NSR, unremarkable echo 01/2020 tds, nl LV/RV function, LA mildly dialted, mild MR, mild TR, impaired LV relaxation severe iron deficiency anemia, preop CV eval: -recent report of "elevated heart enzymes" at [place], with cardio followup at that time. reviewed records sent from [place], Dr Parker general maintenance engineer from 01/16, notes patient had mildly elevated troponin in setting of asthma exacerbation in November, likely demand. no chest pain or EKG changes at the time. Had echo scheduled with plan for stress test if any wma seen - echo done here - unremarkable, patient remains asymptomatic HTN: -controlled on Diltiazem HPL: -outpt f/u asthma: -per primary team
--- NOTE | 2020-02-03 14:37 | PN ---
Teaching Attending Note Name of Resident: Bradly Rosales ATTENDING PHYSICIAN STATEMENT I saw and evaluated the patient. I reviewed the resident's note and discussed the case with the resident. I agree with the resident's findings and plan as documented. SUBJECTIVE: Seen and examined at bedside. Discharge delayed last night due to issues with transportation. Discharge planned for today. Patient is medically cleared for discharge OBJECTIVE: Last Vital Signs Temp Pulse Resp BP Pulse Ox 97.5 F L 73 18 149/64 94 L 02/03/20 09:14 02/03/20 09:14 02/03/20 09:14 02/03/20 09:14 02/03/20 06:00 PE: Per resident note Labs/Imaging; reviewed ASSESSMENT AND PLAN: 69 year old male with history of Cerebral palsy (wheelchair bound), HTN, HLD, BPH (indwelling baxter catheter), Asthma, and sent in by PCP for severe anemia (labs done 01/24/20). He reports chronic constipation and bloody TP due to hemo rrhoids. Also reports occasional hematuria for years. Patient was found to have iron deficiency anemia. Colonoscopy showed 2 polyps but no obvious source of bleeding. Patient will require repeat colonoscopy in 3 to 6 months due to inadequate visualization of the cecum, as well as a capsule endoscopy for further evaluation of anemia. He received 2 units of blood as well as Venofer as an inpatient.
--- NOTE | 2020-02-03 17:11 | PATH ---
Surgical Pathology Report Patient Name: MARBELLA KERR [facility]. Rec. #: [id number] /Age/Gender: 1950 (Age: 69) / M Account: [id number] Location: [facility] MED/SURG Taken: 02/01/2020 Received: 02/02/2020 Reported: 02/03/2020 Physicians: Mayank Almodovar M.D. Specimen(s) Received A: SECOND PORTION DUODENUM B: ANTRUM C: GE JUNCTION D: TRANSVERSE COLON POLYP E: TRANSVERSE COLON Clinical History Anemia Postoperative diagnosis: Gastritis, diverticulosis, colon polyp Final Diagnosis A. DUODENUM, SECOND PORTION, BIOPSY: DUODENAL MUCOSA WITH MILD CHRONIC DUODENITIS ARE PRESERVED VILLOUS ARCHITECTURE. B. GASTRIC ANTRUM, BIOPSY: GASTRIC ANTRAL MUCOSA WITH MILD CHRONIC GASTRITIS. IMMUNOHISTOCHEMICAL STAIN FOR H. PYLORI IS NEGATIVE. C. GE JUNCTION, BIOPSY: SCANT SUPERFICIAL FRAGMENTS OF GASTRIC EPITHELIUM. NO SQUAMOUS MUCOSA, INTESTINAL METAPLASIA, OR DYSPLASIA IDENTIFIED. D. TRANSVERSE COLON, POLYP, BIOPSY: TUBULAR ADENOMA. E. TRANSVERSE COLON, POLYPECTOMY: TUBULAR ADENOMA. Positive and negative controls (internal if applicable) show appropriate results. Electronically Signed Iliana Smith M.D. Gross Description A. Received in formalin, labeled "biopsy second portion of duodenum" is a mercado, irregular portion of soft tissue measuring 0.1 cm. in greatest dimension. The specimen is submitted in toto in one cassette. B. Received in formalin, labeled "biopsy gastric antrum" is a mercado, irregular portion of soft tissue measuring 0.1 cm. in greatest dimension. The specimen is submitted in toto in one cassette. C. Received in formalin, labeled "biopsy GE junction" is a mercado, irregular portion of soft tissue measuring 0.1 cm. in greatest dimension. The specimen is submitted in toto in one cassette. D. Received in formalin, labeled "biopsy polyp transverse colon" is a mercado, irregular portion of soft tissue measuring 0.3 cm. in greatest dimension. The specimen is submitted in toto in one cassette. E. Received in formalin, labeled "hot snare polypectomy transverse colon" is a mercado, irregular portion of soft tissue measuring 0.4 cm. in greatest dimension. The specimen is submitted in toto in one cassette. DL/02/02/2020/6/2020
== END 2020-02-03 14:08 | disposition home or self-care (01) | DRG 378 ==
LOC: JER 15:59 → J8W 21:32 → JER 23:46 → J8W 23:46
PROVIDERS: ADMIT Internal Medicine; ATTEND Internal Medicine
PROC: 30233N1 Transfusion of Nonautologous Red Blood Cells into Peripheral Vein, Percutaneous Approach (ICD-10-PCS; principal; 2020-01-28)
PROC: 0DBL8ZX Excision of Transverse Colon, Via Natural or Artificial Opening Endoscopic, Diagnostic (ICD-10-PCS; 2020-02-01)
PROC: 0DB98ZX Excision of Duodenum, Via Natural or Artificial Opening Endoscopic, Diagnostic (ICD-10-PCS; 2020-02-01)
PROC: 0DB68ZX Excision of Stomach, Via Natural or Artificial Opening Endoscopic, Diagnostic (ICD-10-PCS; 2020-02-01)
PROC: 0DB58ZX Excision of Esophagus, Via Natural or Artificial Opening Endoscopic, Diagnostic (ICD-10-PCS; 2020-02-01)
DX: K92.1 Melena (principal); T83.511A Infection and inflammatory reaction due to indwelling urethral catheter, initial encounter; E46 Unspecified protein-calorie malnutrition; D50.9 Iron deficiency anemia, unspecified; I10 Essential (primary) hypertension; E78.5 Hyperlipidemia, unspecified; N40.0 Benign prostatic hyperplasia without lower urinary tract symptoms; Z99.3 Dependence on wheelchair; E66.9 Obesity, unspecified; Z68.32 Body mass index [BMI] 32.0-32.9, adult; K59.09 Other constipation; R31.9 Hematuria, unspecified; K42.9 Umbilical hernia without obstruction or gangrene; K64.1 Second degree hemorrhoids; K57.90 Diverticulosis of intestine, part unspecified, without perforation or abscess without bleeding; G80.9 Cerebral palsy, unspecified; J45.20 Mild intermittent asthma, uncomplicated; N20.0 Calculus of kidney; N28.1 Cyst of kidney, acquired; L89.322 Pressure ulcer of left buttock, stage 2; K63.5 Polyp of colon; K29.70 Gastritis, unspecified, without bleeding
CPT/HCPCS: 36415; 36430; 36511; 71045-TC-FY; 74178-TC; 80048; 80053; 81003; 82272; 82607; 82728; 82746; 83036; 83540; 83550; 83735; 84100; 84153; 84443; 85025; 85027; 85044; 85610; 85730; 86850; 86900; 86901; 86922; 87086; 88305-TC; 93005; 93010; 93306-TC; 99285-25; E0186; J1756; P9038; P9058; Q9967; U0003